=== PATIENT | female | born 1990 | race Caucasian/White ===

== ENCOUNTER 2022-06-20 22:49 | Emergency (ER) | payer OTHER, SELFPAY ==
--- NOTE | ~2022-06-20 | US_ITS ---
EXAMINATION: US PELVIS CLINICAL INFORMATION: Heavy vaginal bleeding, last menstrual period 05/30/2022, bleeding until today per patient, ordering provider's note states she began bleeding yesterday. History of 4 sections, last section 10 years ago COMPARISON: None TECHNIQUE: Ultrasound of the pelvis is performed using both transabdominal and transvaginal transducers along with Doppler. Transvaginal imaging is performed due to inadequate visualization transabdominally. FINDINGS: Uterus: Anteverted/anteflexed: 11.3 x 4.5 x 5.3 cm with a volume of 141 mL. Probable scar along the anteroinferior body. The endometrial stripe measures up to 1.0 cm at the level the fundus. The cervical canal is mildly widened with heterogeneous material with anechoic, hypoechoic and echogenic components. Color Doppler showed no associated vascular flow. Right ovary: 1.9 x 1.6 x 1.7 cm with a volume of 2.7 cm. Color Doppler showed no abnormal vascular flow. Left ovary: 2.0 x 1.3 x 1.7 cm with a volume of 2.3 mL. Color Doppler showed no abnormal vascular flow. Urinary bladder: Mildly distended without focal abnormality. US/US pelvic and transvaginal IMPRESSION: 1. postsurgical changes. Heterogeneous material within the cervical canal is nonspecific, but could represent blood products, possibly products of menstruation. Sequelae of previous cannot be excluded. If bleeding persists or worsens, further evaluation with sonohysterography is recommended.
[2022-06-21 00:35] VITALS: BP 126/75; PULSE 84; RESP 18; TEMP 36.7; O2SAT 98; BMI 38.1
[2022-06-21 01:15] LABS: Basophils Absolute Auto 0.1 X10*3/uL (0.0-0.2); Basophils Percent Auto 0.7 % (0-2); Eosinophils Absolute Auto 0.5 X10*3/uL (0.0-0.4); Eosinophils Percent Auto 3.5 % (0-4); Hematocrit 40.3 % (37.0-47.0); Hemoglobin 13.9 g/dl (12.0-16.0); Imm Gran Abs Auto 0.06 X10*3/uL (0.00-0.03); Imm Gran Pct Auto 0.4 % (0.0-0.4); Lymphocytes Absolute Auto 4.6 X10*3/uL (1.2-4.9); Lymphocytes Percent Auto 30.9 % (20-40); MANUAL DIFF FLAG NO; Mean Corpuscular HGB Conc 34.5 g/dl (31.0-35.0); Mean Corpuscular Hemoglobin 31.2 pg (27.0-33.0); Mean Corpuscular Volume 90.6 fL (80.0-98.0); Mean Platelet Volume 10.8 fL (9.4-12.3); Monocytes Absolute Auto 0.9 X10*3/uL (0.1-1.2); Monocytes Percent Auto 6.3 % (2-11); Neutrophils Absolute Auto 8.5 x10*3/uL (2.0-8.3); Neutrophils Percent Auto 58.2 % (45-73); Platelet Count 384 X10*3/uL (160-400); Red Blood Count 4.45 X10*6/uL (4.20-5.50); Red Cell Distribution Width 12.7 % (11.0-16.0); White Blood Count 14.7 X10*3/uL (4.8-10.8)
[2022-06-21 01:36] LABS: Anion Gap 11 (12-20); Blood Urea Nitrogen 10 mg/dL (9-16); Calcium 9.2 mg/dL (8.4-10.2); Carbon Dioxide 24 mmol/L (22-29); Chloride 108 mmol/L (96-108); Creatinine Clr Calc Pharmacy 106.2; Estimated Glomerular Filt Rate > 60; Glucose Random 94 mg/dL (60-115); Potassium 4.1 mmol/L (3.3-5.1); Sodium 139 mmol/L (135-145)
[2022-06-21 02:21] VITALS: BP 126/90; PULSE 78; RESP 16; TEMP 36.6; O2SAT 97
[2022-06-21 02:54] LABS: Appearance Urine HAZY; Color Urine STRAW; Glucose Urine UA NEG (NEG); Leukocyte Esterase Urine NEG (NEG); Nitrite Urine NEG (NEG); Specific Gravity - Urine 1.025 (1.005-1.025); UACC Culture Trigger NO; Urine Blood 3+ (NEG); Urine Ketones NEG (NEG); Urine Protein NEG (NEG-TRACE)
[2022-06-21 02:57] LABS: UPreg QC Valid YES; Urine Pregnancy NEGATIVE (NEGATIVE)
[2022-06-21 03:00] LABS: Bacteria Urine 2+ /LPF; Mucus Urine 1+ /LPF; Squamous Epithelial Cell Urine 1+ /LPF
[2022-06-21 03:12] LABS: HCG Quantitative < 2 mIU/mL
[2022-06-21] MEDS: 0.9 % Sodium Chloride 1,000 ML 999 ML IV (03:20)
[2022-06-21 05:42] VITALS: BP 108/63; PULSE 77; RESP 16; TEMP 36.5; O2SAT 99
[2022-06-21 06:48] VITALS: BP 118/82; PULSE 79; RESP 16; O2SAT 98
--- NOTE | 2022-06-21 06:48 | ED_ITS ---
HPI - Female Genitourinary General Chief complaint: Vaginal Bleeding Stated complaint: long period, lot of blood Time Seen by Provider: 06/21/22 06:46 Source: patient Mode of arrival: ambulatory Limitations: no limitations History of Present Illness HPI Narrative: Patient comes to the emergency room complaining of heavy vaginal bleeding for 3 and half weeks. She denies chest pain or shortness of breath, no light headedness no dizziness. Patient denies abdominal cramping. No dysuria. Before I saw the patient has, labs were drawn, hemoglobin is stable at 13.9, hematocrit 40.3%. I discussed his labs with the patient, which are normal considering the amount of bleeding that the patient has had. Then patient corrected herself, states she started bleeding heavily only since yesterday. Related Data Previous Rx's Medication Instructions Recorded levonorgestrel 0.15 mg-ethinyl 1 tab PO DAILY #84 tabs 06/21/22 estradiol 0.03 mg tablet (Altavera (28)) Allergies Allergy/AdvReac Type Severity Reaction Status Date / Time peanut [PEANUT] Allergy Unknown UNKNWON Verified 06/21/22 02:12 Review of Systems Review of Systems: Constitutional : No Weight loss, No Fever, No Chills, No Night Sweats, No Fatigue, No Malaise ENT/Mouth : No Hearing loss, No Ear Pain, No Nasal Congestion, No Sinus Pain, No Hoarseness, No sore throat, No Rhinorrhea, No Swallowing Difficulty Eyes: No Eye Pain, No Swelling, No Redness, No Foreign Body, No Discharge, No Vision Changes Cardiovascular : No Chest Pain, No SOB, No Dyspnea on Exertion, No Orthopnea, No Edema, No Palpitations Respiratory : No Cough, No Sputum, No Wheezing, No Smoke Exposure, No Dyspnea Gastrointestinal : No Nausea, No Vomiting, No Diarrhea, No Constipation, No abdominal Pain, No Hematochezia, No Melena Genitourinary : Complaining of heavy vaginal bleeding, No Dysuria, No Urinary Frequency, No Hematuria, No Urinary Incontinence, No Urgency, No Flank Pain, No Urinary Flow Changes, No Hesitancy Musculoskeletal : No joint pain, No Myalgias, No Joint Swelling Skin : No Skin Lesions, No rash Neuro : No Weakness, No Numbness, No Paresthesias, No Loss of Consciousness, No Dizziness, No Headache Psych : No Anxiety/Panic, No Depression, No SI/HI/AH/VH, No Social Issues, Heme/Lymph: No Bruising, No Bleeding,No Lymphadenopathy Endocrine : No Polyuria, No Polydipsia, No Temperature Intolerance [facility] Social History Social History Advance Directives: No Advance Directives Information Provided: Yes Physical Exam Vital Signs: Vital Signs: Last Vital Signs Temp 97.7 F 06/21/22 05:42 Pulse 79 06/21/22 06:48 Resp 16 06/21/22 06:48 BP 118/82 06/21/22 06:48 Pulse Ox 98 06/21/22 06:48 O2 Del Method 06/21/22 06:48 BMI result Body Mass Index 38.1 Const: Other: Appearance: Alert. Oriented X3. No acute distress. Well-appearing Eyes: Pupils equal, round and reactive to light. ENT: Pharynx normal. Neck: Normal inspection. Neck supple. No lymph nodes noted. No crepitus CVS: Normal heart rate and rhythm. Pulses normal. Normal S1 and S2 Respiratory: No respiratory distress. Breath sounds normal. No Wheezing. No rales Abdomen: Soft and nontender. No rigidity. No distention. : Small amount of blood clots in the vaginal vault, no active bleeding Skin: Skin warm and dry. Normal skin color. Normal skin turgor. Extremities: No lower extremity edema. No Lacerations. No Rash Neuro: Oriented X 3. No motor deficit. No sensory deficit. Moving all extremities. No slurred speech. CN 2 through 12 grossly intact Psych: calm, cooperative, normal affect Course Course Course Narrative: I discussed the ultrasound and physical findings with the patient, patient will be started on control pills. Patient will follow-up with OBGYN MDM - Female Genitourinary Lab Data Result diagrams: 06/21/22 01:10 06/21/22 01:10 Labs: Lab Results 06/21/22 06/21/22 06/21/22 Range/Units 01:10 01:10 02:48 WBC 14.7 H (4.8-10.8) X10*3/uL RBC 4.45 (4.20-5.50) X10*6/uL Hgb 13.9 (12.0-16.0) g/dl Hct 40.3 (37.0-47.0) % MCV 90.6 (80.0-98.0) fL MCH 31.2 (27.0-33.0) pg MCHC 34.5 (31.0-35.0) g/dl RDW 12.7 (11.0-16.0) % Plt Count 384 (160-400) X10*3/uL MPV 10.8 (9.4-12.3) fL Immature Gran % (Auto) 0.4 (0.0-0.4) % Neut % (Auto) 58.2 (45-73) % Lymph % (Auto) 30.9 (20-40) % Harris % (Auto) 6.3 (2-11) % Eos % (Auto) 3.5 (0-4) % Baso % (Auto) 0.7 (0-2) % Lymph # (Auto) 4.6 (1.2-4.9) X10*3/uL Harris # (Auto) 0.9 (0.1-1.2) X10*3/uL Eos # (Auto) 0.5 H (0.0-0.4) X10*3/uL Baso # (Auto) 0.1 (0.0-0.2) X10*3/uL Abs Immat Gran (auto) 0.06 H (0.00-0.03) X10*3/uL Absolute Neuts (auto) 8.5 H (2.0-8.3) x10*3/uL Absolute Nucleated RBC 0.000 (0.0-0.012) X10*3/uL Nucleated RBC % (auto) 0.0 (0.0-0.2) /100WBC Sodium 139 (135-145) mmol/L Potassium 4.1 (3.3-5.1) mmol/L Chloride 108 (96-108) mmol/L Carbon Dioxide 24 (22-29) mmol/L Anion Gap 11 L (12-20) BUN 10 (9-16) mg/dL Creatinine 0.76 (0.5-1.4) mg/dL Estim Creat Clear Calc 106.2 Estimated GFR > 60 Random Glucose 94 (60-115) mg/dL Calcium 9.2 (8.4-10.2) mg/dL Beta HCG, Quant < 2 mIU/mL Urine Color Urine Appearance Urine pH (5.0-8.0) Ur Specific [place] (1.005-1.025) Urine Protein (NEG-TRACE) MG/DL Urine Glucose (UA) (NEG) MG/DL Urine Ketones (NEG) MG/DL Urine Blood (NEG) Urine Nitrite (NEG) Ur Leukocyte Esterase (NEG) Urine RBC (0) /HPF Urine WBC (0-4) /HPF Ur Squamous Epith Cells /LPF Urine Bacteria /LPF Urine Mucus /LPF Urine Test NEGATIVE (NEGATIVE) 06/21/22 Range/Units 02:48 WBC (4.8-10.8) X10*3/uL RBC (4.20-5.50) X10*6/uL Hgb (12.0-16.0) g/dl Hct (37.0-47.0) % MCV (80.0-98.0) fL MCH (27.0-33.0) pg MCHC (31.0-35.0) g/dl RDW (11.0-16.0) % Plt Count (160-400) X10*3/uL MPV (9.4-12.3) fL Immature Gran % (Auto) (0.0-0.4) % Neut % (Auto) (45-73) % Lymph % (Auto) (20-40) % Harris % (Auto) (2-11) % Eos % (Auto) (0-4) % Baso % (Auto) (0-2) % Lymph # (Auto) (1.2-4.9) X10*3/uL Harris # (Auto) (0.1-1.2) X10*3/uL Eos # (Auto) (0.0-0.4) X10*3/uL Baso # (Auto) (0.0-0.2) X10*3/uL Abs Immat Gran (auto) (0.00-0.03) X10*3/uL Absolute Neuts (auto) (2.0-8.3) x10*3/uL Absolute Nucleated RBC (0.0-0.012) X10*3/uL Nucleated RBC % (auto) (0.0-0.2) /100WBC Sodium (135-145) mmol/L Potassium (3.3-5.1) mmol/L Chloride (96-108) mmol/L Carbon Dioxide (22-29) mmol/L Anion Gap (12-20) BUN (9-16) mg/dL Creatinine (0.5-1.4) mg/dL Estim Creat Clear Calc Estimated GFR Random Glucose (60-115) mg/dL Calcium (8.4-10.2) mg/dL Beta HCG, Quant mIU/mL Urine Color STRAW Urine Appearance HAZY Urine pH 6.0 (5.0-8.0) Ur Specific [place] 1.025 (1.005-1.025) Urine Protein NEG (NEG-TRACE) MG/DL Urine Glucose (UA) NEG (NEG) MG/DL Urine Ketones NEG (NEG) MG/DL Urine Blood 3+ H (NEG) Urine Nitrite NEG (NEG) Ur Leukocyte Esterase NEG (NEG) Urine RBC 10-14 H (0) /HPF Urine WBC 1-4 (0-4) /HPF Ur Squamous Epith Cells 1+ /LPF Urine Bacteria 2+ /LPF Urine Mucus 1+ /LPF Urine Test (NEGATIVE) Imaging Data US - abdomen: Radiologist's impression: FINDINGS: Uterus: Anteverted/anteflexed: 11.3 x 4.5 x 5.3 cm with a volume of 141 mL. Probable scar along the anteroinferior body. The endometrial stripe measures up to 1.0 cm at the level the fundus. The cervical canal is mildly widened with heterogeneous material with anechoic, hypoechoic and echogenic components. Color Doppler showed no associated vascular flow. Right ovary: 1.9 x 1.6 x 1.7 cm with a volume of 2.7 cm. Color Doppler showed no abnormal vascular flow. Left ovary: 2.0 x 1.3 x 1.7 cm with a volume of 2.3 mL. Color Doppler showed no abnormal vascular flow. Urinary bladder: Mildly distended without focal abnormality. US/US pelvic and transvaginal IMPRESSION: 1. postsurgical changes. Heterogeneous material within the cervical canal is nonspecific, but could represent blood products, possibly products of menstruation. Sequelae of previous cannot be excluded. If bleeding persists or worsens, further evaluation with sonohysterography is recommended. Discharge Plan Discharge Clinical Impression: Vaginal bleeding Patient Disposition: Home, Self-Care Instructions: Dysfunctional Uterine Bleeding (ED) Additional Instructions: Please follow-up with your primary care physician tomorrow. If you have any worsening or new symptoms, please return to the emergency room or call 911 Prescriptions: New levonorgestrel-ethinyl estrad [Altavera (28)] 0.15-0.03 mg tablet 1 tab PO DAILY Qty: 84 0RF Rx Instructions: For the 1st 4 days, take 4 tablets, next 3 days, take 3 tablets, next 2 days take 2 tablets, then 1 tablet oral daily Referrals: Remy Lakhani MD [Physician] - 2 days
--- NOTE | 2022-06-21 08:50 | PC.NURSE ---
Pt sleeping at this time, awaiting US results, call shane within reach. Will continue to monitor.
== END 2022-06-21 10:32 | disposition home or self-care (01) ==
PROVIDERS: Emergency Provider Emergency Medicine
DX: N93.9 Abnormal uterine and vaginal bleeding, unspecified (principal)
CPT/HCPCS: 36415; 76830; 76856; 80048; 81001; 81025; 84702; 85025; 86850; 86900; 86901; 96360; 99284

== ENCOUNTER 2022-11-21 04:15 | Emergency (ER) | payer MEDICAID, SELFPAY ==
[2022-11-21 04:17] VITALS: BP 140/78; PULSE 92; O2SAT 98
[2022-11-21 04:35] VITALS: BP 106/70; BP 114/68; PULSE 85; PULSE 86; RESP 18; TEMP 36.5; O2SAT 98; BMI 33.2
--- NOTE | 2022-11-21 05:53 | ECG_ITS ---
Test Reason : DIZZINESS Blood Pressure : / mmHG Vent. Rate : 073 BPM Atrial Rate : 073 BPM P-R Int : 176 ms QRS Dur : 076 ms QT Int : 384 ms P-R-T Axes : 042 026 009 degrees QTc Int : 423 ms Normal sinus rhythm Normal ECG No previous ECGs available Referred By: Radha Sanchez Electronically Signed By:FATIMAH GUZMAN MD
--- NOTE | 2022-11-21 05:54 | ED_ITS ---
HPI - Syncope General Chief Complaint: Dizziness Stated Complaint: syncope Time Seen by Provider: 11/21/22 05:49 Source: patient and EMS Mode of arrival: EMS Limitations: no limitations History of Present Illness HPI narrative: Patient comes to the emergency room complaining of a syncopal episode that occurred at work. 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 Patient reports she started feeling lightheaded, then suddenly collapsed to the floor. Patient states that she was told that she was unconscious for a couple minutes. Patient denies any chest pain or shortness of breath or palpitations. At this time, patient states that she has no dizziness or symptoms. Related Data Previous Rx's Medication Instructions Recorded levonorgestrel 0.15 mg-ethinyl 1 tab PO DAILY #84 tabs 06/21/22 estradiol 0.03 mg tablet (Altavera (28)) Allergies Allergy/AdvReac Type Severity Reaction Status Date / Time peanut [PEANUT] Allergy Unknown UNKNWON Verified 06/21/22 02:12 Review of Systems Review of Systems: Constitutional : No Weight loss, No Fever, No Chills, No Night Sweats, No Fatigue, No Malaise ENT/Mouth : No Hearing loss, No Ear Pain, No Nasal Congestion, No Sinus Pain, No Hoarseness, No sore throat, No Rhinorrhea, No Swallowing Difficulty Eyes: No Eye Pain, No Swelling, No Redness, No Foreign Body, No Discharge, No Vision Changes Cardiovascular : No Chest Pain, No SOB, No Dyspnea on Exertion, No Orthopnea, No Edema, No Palpitations Respiratory : No Cough, No Sputum, No Wheezing, No Smoke Exposure, No Dyspnea Gastrointestinal : No Nausea, No Vomiting, No Diarrhea, No Constipation, No abdominal Pain, No Hematochezia, No Melena Genitourinary : no irregular bleeding, No Dysuria, No Urinary Frequency, No Hematuria, No Urinary Incontinence, No Urgency, No Flank Pain, No Urinary Flow Changes, No Hesitancy Musculoskeletal : No joint pain, No Myalgias, No Joint Swelling Skin : No Skin Lesions, No rash Neuro : No Weakness, No Numbness, No Paresthesias, complaining of a syncopal episode, No Dizziness, No Headache Psych : No Anxiety/Panic, No Depression, No SI/HI/AH/VH, No Social Issues, Heme/Lymph: No Bruising, No Bleeding,No Lymphadenopathy Endocrine : No Polyuria, No Polydipsia, No Temperature Intolerance [facility] Social History Social History Advance Directives: No Advance Directives Information Provided: Yes Physical Exam Vital Signs: Vital Signs: Last Vital Signs Temp 97.7 F 11/21/22 04:35 Pulse 80 11/21/22 06:06 Resp 18 11/21/22 04:35 BP 120/78 11/21/22 06:06 Pulse Ox 98 11/21/22 04:35 O2 Del Method 11/21/22 04:35 BMI result Body Mass Index 33.2 Const: Other: Appearance: Alert. Oriented X3. No acute distress. Eyes: Pupils equal, round and reactive to light. ENT: Pharynx normal. Neck: Normal inspection. Neck supple. No lymph nodes noted. No crepitus CVS: Normal heart rate and rhythm. Pulses normal. Normal S1 and S2 Respiratory: No respiratory distress. Breath sounds normal. No Wheezing. No rales Abdomen: Soft and nontender. No rigidity. No distention. Skin: Skin warm and dry. Normal skin color. Normal skin turgor. Extremities: No lower extremity edema. No Lacerations. No Rash Neuro: Oriented X 3. No motor deficit. No sensory deficit. Moving all extremities. No slurred speech. CN 2 through 12 grossly intact Psych: calm, cooperative, normal affect Course Course Course Narrative: All of patient's labs and imaging pending, orthostatic vitals are negative Of patient's labs are normal, EKG normal, I discussed with the patient that if she continues having syncopal episodes, she will be be evaluated by Cardiology, possibly needs a Holter monitor evaluation. Medical Decision Making Lab Data MDM Lab Attestation statement: I reviewed the patient's lab results. Result Diagrams: 11/21/22 06:20 11/21/22 06:20 Labs: Lab Results 11/21/22 11/21/22 11/21/22 Range/Units 06:20 06:20 06:20 WBC 12.6 H (4.8-10.8) X10*3/uL RBC 4.30 (4.20-5.50) X10*6/uL Hgb 13.3 (12.0-16.0) g/dl Hct 38.9 (37.0-47.0) % MCV 90.5 (80.0-98.0) fL MCH 30.9 (27.0-33.0) pg MCHC 34.2 (31.0-35.0) g/dl RDW 12.6 (11.0-16.0) % Plt Count 388 (160-400) X10*3/uL MPV 11.0 (9.4-12.3) fL Immature Gran % (Auto) 0.3 (0.0-0.4) % Neut % (Auto) 63.3 (45-73) % Lymph % (Auto) 26.0 (20-40) % [place] % (Auto) 7.3 (2-11) % Eos % (Auto) 2.3 (0-4) % Baso % (Auto) 0.8 (0-2) % Lymph # (Auto) 3.3 (1.2-4.9) X10*3/uL [place] # (Auto) 0.9 (0.1-1.2) X10*3/uL Eos # (Auto) 0.3 (0.0-0.4) X10*3/uL Baso # (Auto) 0.1 (0.0-0.2) X10*3/uL Abs Immat Gran (auto) 0.04 H (0.00-0.03) X10*3/uL Absolute Neuts (auto) 8.0 (2.0-8.3) x10*3/uL Absolute Nucleated RBC 0.000 (0.0-0.012) X10*3/uL Nucleated RBC % (auto) 0.0 (0.0-0.2) /100WBC D-Dimer High Sensitivty NG/ML Sodium 137 (135-145) mmol/L Potassium 4.2 (3.3-5.1) mmol/L Chloride 106 (96-108) mmol/L Carbon Dioxide 23 (22-29) mmol/L Anion Gap 12 (12-20) BUN 11 (9-16) mg/dL Creatinine 0.67 (0.5-1.4) mg/dL Estim Creat Clear Calc 110.6 Estimated GFR > 60 Random Glucose 97 (60-115) mg/dL Calcium 9.3 (8.4-10.2) mg/dL Total Bilirubin 0.3 (0.0-1.0) mg/dL Direct Bilirubin < 0.2 (0.0-0.5) mg/dL AST 15 (5-31) U/L ALT 19 (0-31) U/L Alkaline Phosphatase 101 (39-117) U/L Troponin I High Sens < 3.5 (<3.5-17.0) ng/L Total Protein 6.7 (6.5-8.0) g/dL Albumin 3.9 (3.5-5.0) g/dL Beta HCG, Quant < 2 mIU/mL Urine Color Urine Appearance Urine pH (5.0-9.0) Ur Specific [place] (1.005-1.025) Urine Protein (Neg-Trace) mg/dL Urine Glucose (UA) (Negative) mg/dL Urine Ketones (Negative) mg/dL Urine Blood (Negative) Urine Nitrite (Negative) Ur Leukocyte Esterase (Negative) Urine RBC (0-2) /HPF Urine WBC (0-5) /HPF Ur Squamous Epith Cells (0-2) /HPF Urine Bacteria (None Seen) Hyaline Casts (0-2) /LPF Urine Opiates Screen (Not Detect) Urine Fentanyl Screen (Not Detect) Ur Barbiturates Screen (Not Detect) Ur Phencyclidine Scrn (Not Detect) Ur Amphetamines Screen (Not Detect) U Benzodiazepines Scrn (Not Detect) Urine Cocaine Screen (Not Detect) U Marijuana (THC) Screen (Not Detect) COVID-19 (JIAN) (Negative) COVID-19 Clin Com 11/21/22 11/21/22 11/21/22 Range/Units 06:20 06:20 06:20 WBC (4.8-10.8) X10*3/uL RBC (4.20-5.50) X10*6/uL Hgb (12.0-16.0) g/dl Hct (37.0-47.0) % MCV (80.0-98.0) fL MCH (27.0-33.0) pg MCHC (31.0-35.0) g/dl RDW (11.0-16.0) % Plt Count (160-400) X10*3/uL MPV (9.4-12.3) fL Immature Gran % (Auto) (0.0-0.4) % Neut % (Auto) (45-73) % Lymph % (Auto) (20-40) % [place] % (Auto) (2-11) % Eos % (Auto) (0-4) % Baso % (Auto) (0-2) % Lymph # (Auto) (1.2-4.9) X10*3/uL [place] # (Auto) (0.1-1.2) X10*3/uL Eos # (Auto) (0.0-0.4) X10*3/uL Baso # (Auto) (0.0-0.2) X10*3/uL Abs Immat Gran (auto) (0.00-0.03) X10*3/uL Absolute Neuts (auto) (2.0-8.3) x10*3/uL Absolute Nucleated RBC (0.0-0.012) X10*3/uL Nucleated RBC % (auto) (0.0-0.2) /100WBC D-Dimer High Sensitivty < 150 NG/ML Sodium (135-145) mmol/L Potassium (3.3-5.1) mmol/L Chloride (96-108) mmol/L Carbon Dioxide (22-29) mmol/L Anion Gap (12-20) BUN (9-16) mg/dL Creatinine (0.5-1.4) mg/dL Estim Creat Clear Calc Estimated GFR Random Glucose (60-115) mg/dL Calcium (8.4-10.2) mg/dL Total Bilirubin (0.0-1.0) mg/dL Direct Bilirubin (0.0-0.5) mg/dL AST (5-31) U/L ALT (0-31) U/L Alkaline Phosphatase (39-117) U/L Troponin I High Sens (<3.5-17.0) ng/L Total Protein (6.5-8.0) g/dL Albumin (3.5-5.0) g/dL Beta HCG, Quant mIU/mL Urine Color Yellow Urine Appearance Clear Urine pH 6.0 (5.0-9.0) Ur Specific [place] 1.015 (1.005-1.025) Urine Protein Negative (Neg-Trace) mg/dL Urine Glucose (UA) Negative (Negative) mg/dL Urine Ketones Negative (Negative) mg/dL Urine Blood Negative (Negative) Urine Nitrite Negative (Negative) Ur Leukocyte Esterase Trace H (Negative) Urine RBC 0-2 (0-2) /HPF Urine WBC 0-5 (0-5) /HPF Ur Squamous Epith Cells 3-5 (0-2) /HPF Urine Bacteria Trace (None Seen) Hyaline Casts 0-2 (0-2) /LPF Urine Opiates Screen (Not Detect) Urine Fentanyl Screen (Not Detect) Ur Barbiturates Screen (Not Detect) Ur Phencyclidine Scrn (Not Detect) Ur Amphetamines Screen (Not Detect) U Benzodiazepines Scrn (Not Detect) Urine Cocaine Screen (Not Detect) U Marijuana (THC) Screen (Not Detect) COVID-19 (JIAN) Negative (Negative) COVID-19 Clin Com See Note 11/21/22 Range/Units 06:20 WBC (4.8-10.8) X10*3/uL RBC (4.20-5.50) X10*6/uL Hgb (12.0-16.0) g/dl Hct (37.0-47.0) % MCV (80.0-98.0) fL MCH (27.0-33.0) pg MCHC (31.0-35.0) g/dl RDW (11.0-16.0) % Plt Count (160-400) X10*3/uL MPV (9.4-12.3) fL Immature Gran % (Auto) (0.0-0.4) % Neut % (Auto) (45-73) % Lymph % (Auto) (20-40) % [place] % (Auto) (2-11) % Eos % (Auto) (0-4) % Baso % (Auto) (0-2) % Lymph # (Auto) (1.2-4.9) X10*3/uL [place] # (Auto) (0.1-1.2) X10*3/uL Eos # (Auto) (0.0-0.4) X10*3/uL Baso # (Auto) (0.0-0.2) X10*3/uL Abs Immat Gran (auto) (0.00-0.03) X10*3/uL Absolute Neuts (auto) (2.0-8.3) x10*3/uL Absolute Nucleated RBC (0.0-0.012) X10*3/uL Nucleated RBC % (auto) (0.0-0.2) /100WBC D-Dimer High Sensitivty NG/ML Sodium (135-145) mmol/L Potassium (3.3-5.1) mmol/L Chloride (96-108) mmol/L Carbon Dioxide (22-29) mmol/L Anion Gap (12-20) BUN (9-16) mg/dL Creatinine (0.5-1.4) mg/dL Estim Creat Clear Calc Estimated GFR Random Glucose (60-115) mg/dL Calcium (8.4-10.2) mg/dL Total Bilirubin (0.0-1.0) mg/dL Direct Bilirubin (0.0-0.5) mg/dL AST (5-31) U/L ALT (0-31) U/L Alkaline Phosphatase (39-117) U/L Troponin I High Sens (<3.5-17.0) ng/L Total Protein (6.5-8.0) g/dL Albumin (3.5-5.0) g/dL Beta HCG, Quant mIU/mL Urine Color Urine Appearance Urine pH (5.0-9.0) Ur Specific [place] (1.005-1.025) Urine Protein (Neg-Trace) mg/dL Urine Glucose (UA) (Negative) mg/dL Urine Ketones (Negative) mg/dL Urine Blood (Negative) Urine Nitrite (Negative) Ur Leukocyte Esterase (Negative) Urine RBC (0-2) /HPF Urine WBC (0-5) /HPF Ur Squamous Epith Cells (0-2) /HPF Urine Bacteria (None Seen) Hyaline Casts (0-2) /LPF Urine Opiates Screen Not Detected (Not Detect) Urine Fentanyl Screen Not Detected (Not Detect) Ur Barbiturates Screen Not Detected (Not Detect) Ur Phencyclidine Scrn Not Detected (Not Detect) Ur Amphetamines Screen Not Detected (Not Detect) U Benzodiazepines Scrn Not Detected (Not Detect) Urine Cocaine Screen Not Detected (Not Detect) U Marijuana (THC) Screen Not Detected (Not Detect) COVID-19 (JIAN) (Negative) COVID-19 Clin Com Independent Interpretation I performed an independent interpretation of an: EKG (My interpretation: Sinus rhythm, heart rate 73, no ST segment depression or elevation, no T-wave inversion.) Discharge Plan Discharge Clinical Impression: Syncope Patient Disposition: Home, Self-Care Instructions: Syncope (ED) Additional Instructions: Please follow-up with your primary care physician tomorrow. If you have any worsening or new symptoms, please return to the emergency room or call 911 Prescriptions: No Action levonorgestrel-ethinyl estrad [Altavera (28)] 0.15-0.03 mg tablet 1 tab PO DAILY Qty: 84 0RF Rx Instructions: For the 1st 4 days, take 4 tablets, next 3 days, take 3 tablets, next 2 days take 2 tablets, then 1 tablet oral daily
[2022-11-21 06:04] VITALS: BP 114/67; PULSE 78
[2022-11-21 06:05] VITALS: BP 107/75; PULSE 76
[2022-11-21 06:06] VITALS: BP 120/78; PULSE 80
[2022-11-21 06:28] LABS: MANUAL DIFF FLAG NO
[2022-11-21 06:30] LABS: Appearance Urine Clear; Color Urine Yellow; Glucose Urine UA Negative (Negative); Leukocyte Esterase Urine Trace (Negative); Nitrite Urine Negative (Negative); Specific Gravity - Urine 1.015 (1.005-1.025); UMIC TRIGGER UACC YES; Urine Blood Negative (Negative); Urine Ketones Negative (Negative); Urine Protein Negative (Neg-Trace)
[2022-11-21 06:34] LABS: Basophils Absolute Auto 0.1 X10*3/uL (0.0-0.2); Basophils Percent Auto 0.8 % (0-2); Eosinophils Absolute Auto 0.3 X10*3/uL (0.0-0.4); Eosinophils Percent Auto 2.3 % (0-4); Hematocrit 38.9 % (37.0-47.0); Hemoglobin 13.3 g/dl (12.0-16.0); Imm Gran Abs Auto 0.04 X10*3/uL (0.00-0.03); Imm Gran Pct Auto 0.3 % (0.0-0.4); Lymphocytes Absolute Auto 3.3 X10*3/uL (1.2-4.9); Mean Corpuscular HGB Conc 34.2 g/dl (31.0-35.0); Mean Corpuscular Hemoglobin 30.9 pg (27.0-33.0); Mean Corpuscular Volume 90.5 fL (80.0-98.0); Monocytes Absolute Auto 0.9 X10*3/uL (0.1-1.2); Monocytes Percent Auto 7.3 % (2-11); Neutrophils Percent Auto 63.3 % (45-73); Platelet Count 388 X10*3/uL (160-400); Red Cell Distribution Width 12.6 % (11.0-16.0); White Blood Count 12.6 X10*3/uL (4.8-10.8)
[2022-11-21 06:36] LABS: Bacteria Urine Trace (None Seen); Hyaline Casts Urine 0-2 /LPF (0-2); RBC Urine 0-2 /HPF (0-2); WBC Urine 0-5 /HPF (0-5)
[2022-11-21 06:38] LABS: Amphetamine Screen Urine Not Detected (Not Detect); Barbiturates, Urine Not Detected (Not Detect); Benzodiazepines Screen Urine Not Detected (Not Detect); Cannabinoid Screen Urine Not Detected (Not Detect); Cocaine Screen Urine Not Detected (Not Detect); Fentanyl, urine Not Detected (Not Detect); Opiate Screen Urine Not Detected (Not Detect); Phencyclidine Screen Urine Not Detected (Not Detect)
[2022-11-21 06:41] LABS: COVID-19 Test Negative (Negative); IDNOW Serial# 9DB6401D
[2022-11-21 06:51] LABS: D Dimer High Sensitivity < 150 NG/ML
[2022-11-21 06:57] LABS: Troponin-I High Sensitivity < 3.5 ng/L (<3.5-17.0)
[2022-11-21 07:03] LABS: Alanine Aminotransferase 19 U/L (0-31); Albumin Level 3.9 g/dL (3.5-5.0); Alkaline Phosphatase 101 U/L (39-117); Anion Gap 12 (12-20); Aspartate Amino Transferase 15 U/L (5-31); Bilirubin Direct < 0.2 mg/dL (0.0-0.5); Bilirubin Total 0.3 mg/dL (0.0-1.0); Blood Urea Nitrogen 11 mg/dL (9-16); Calcium 9.3 mg/dL (8.4-10.2); Carbon Dioxide 23 mmol/L (22-29); Chloride 106 mmol/L (96-108); Creatinine Clr Calc Pharmacy 110.6; Estimated Glomerular Filt Rate > 60; Glucose Random 97 mg/dL (60-115); HCG Quantitative < 2 mIU/mL; Potassium 4.2 mmol/L (3.3-5.1); Sodium 137 mmol/L (135-145); Total Protein 6.7 g/dL (6.5-8.0)
== END 2022-11-21 07:57 | disposition home or self-care (01) ==
PROVIDERS: Emergency Provider Emergency Medicine
DX: R55 Syncope and collapse (principal); R42 Dizziness and giddiness; Z20.822 Contact with and (suspected) exposure to COVID-19; Z79.899 Other long term (current) drug therapy
CPT/HCPCS: 36415; 80048; 80076; 80307; 81001; 84484; 84702; 85025; 85379; 87635; 93005; 99283; 99284

== ENCOUNTER 2023-01-22 23:57 | Emergency (ER) | payer MEDICAID, SELFPAY ==
[2023-01-23 00:01] VITALS: BP 117/72; PULSE 95; RESP 16; TEMP 36.7; O2SAT 98; BMI 35.5
[2023-01-23 00:18] LABS: Basophils Absolute Auto 0.1 X10*3/uL (0.0-0.2); Basophils Percent Auto 0.7 % (0-2); Eosinophils Absolute Auto 0.5 X10*3/uL (0.0-0.4); Eosinophils Percent Auto 3.2 % (0-4); Hematocrit 40.4 % (37.0-47.0); Imm Gran Abs Auto 0.05 X10*3/uL (0.00-0.03); Imm Gran Pct Auto 0.3 % (0.0-0.4); Lymphocytes Absolute Auto 4.4 X10*3/uL (1.2-4.9); Lymphocytes Percent Auto 30.1 % (20-40); MANUAL DIFF FLAG NO; Mean Corpuscular HGB Conc 34.7 g/dl (31.0-35.0); Mean Corpuscular Hemoglobin 31.1 pg (27.0-33.0); Mean Corpuscular Volume 89.8 fL (80.0-98.0); Mean Platelet Volume 10.7 fL (9.4-12.3); Neutrophils Absolute Auto 8.5 x10*3/uL (2.0-8.3); Neutrophils Percent Auto 58.7 % (45-73); Platelet Count 352 X10*3/uL (160-400); Red Cell Distribution Width 12.4 % (11.0-16.0); White Blood Count 14.5 X10*3/uL (4.8-10.8)
[2023-01-23 00:29] LABS: Anion Gap 10 (12-20); Blood Urea Nitrogen 18 mg/dL (9-16); Calcium 9.2 mg/dL (8.4-10.2); Carbon Dioxide 23 mmol/L (22-29); Chloride 108 mmol/L (96-108); Creatinine Clr Calc Pharmacy 111.4; Estimated Glomerular Filt Rate > 60; Glucose Random 93 mg/dL (60-115); Sodium 137 mmol/L (135-145)
[2023-01-23 01:27] VITALS: BP 116/73; PULSE 88; RESP 18; TEMP 36.9; O2SAT 98
[2023-01-23 01:39] LABS: Appearance Urine Clear; Color Urine Yellow; Glucose Urine UA Negative (Negative); Leukocyte Esterase Urine Negative (Negative); Nitrite Urine Negative (Negative); Specific Gravity - Urine 1.025 (1.005-1.025); Urine Blood Negative (Negative); Urine Ketones Negative (Negative); Urine Protein Negative (Neg-Trace)
[2023-01-23 01:48] LABS: HCG Quantitative < 2 mIU/mL
--- NOTE | 2023-01-23 01:53 | ED.ABDPAIN ---
HPI - Abdominal Pain General Chief Complaint: Abdominal Pain Stated Complaint: Pelvic pain Time Seen by Provider: 01/23/23 01:46 Source: patient Mode of arrival: ambulatory History of Present Illness HPI narrative: 32-year-old female who reports that she has pain at each corner of her section scar. She denies any associated erythema/induration/fevers/chills or urinary symptoms and denies any nausea, vomiting, or diarrhea. Related Data Previous Rx's Medication Instructions Recorded levonorgestrel 0.15 mg-ethinyl 1 tab PO DAILY #84 tabs 06/21/22 estradiol 0.03 mg tablet (Altavera (28)) Allergies Allergy/AdvReac Type Severity Reaction Status Date / Time peanut [PEANUT] Allergy Unknown UNKNWON Verified 06/21/22 02:12 Review of Systems Review of Systems Pertinent positives and negatives as stated in HPI PMFSH Past Medical History Source: nursing notes reviewed Social History Social History Advance Directives: No Physical Exam ED Vital Signs: Vital Signs - 24 hr 01/23/23 00:01 01/23/23 01:27 Temperature 98.0 F 98.4 F Pulse Rate 95 88 Respiratory Rate 16 18 Blood Pressure 117/72 116/73 Pulse Oximetry 98 98 Oxygen Delivery Method Room Air Room Air BMI result Body Mass Index 35.5 VITAL SIGNS: Reviewed. GENERAL: Well developed, well nourished, in no acute distress. HEAD: Normocephalic/atraumatic EYES: PERRLA, EOMI EARS: Ext canals without abnormality OROPHARYNX: no oral lesions noted, posterior pharynx clear LUNGS: Normal breath sounds. No adventitious sounds or accessory muscle use. SpO2<98> CARDIOVASCULAR: Regular rate and rhythm without noted murmurs ABDOMEN: Soft, non-tender, non-distended with bowel sounds, there is no erythema or induration along the scar line. NEUROLOGIC: Alert and oriented x 4. Strength and sensation to light touch were grossly intact x 4. Medical Decision Making Medical Decision Making [facility] Narrative: 32-year-old female with recurrent pain at the scar site, type of pain and prior workup is inconsistent with incisional hernia, there are no symptoms of obstruction or infection. I reviewed all investigations in my interpretation is patient has scar related discomfort, I did recommend to her the use of lidocaine patch and a the possibility of outpatient referral for a scar revision. Differential Diagnosis Please see the discussion above Lab Data Please see the discussion above 01/23/23 00:10 01/23/23 00:10 Labs: Lab Results 01/23/23 01/23/23 01/23/23 Range/Units 00:10 00:10 01:29 WBC 14.5 H (4.8-10.8) X10*3/uL RBC 4.50 (4.20-5.50) X10*6/uL Hgb 14.0 (12.0-16.0) g/dl Hct 40.4 (37.0-47.0) % MCV 89.8 (80.0-98.0) fL MCH 31.1 (27.0-33.0) pg MCHC 34.7 (31.0-35.0) g/dl RDW 12.4 (11.0-16.0) % Plt Count 352 (160-400) X10*3/uL MPV 10.7 (9.4-12.3) fL Immature Gran % (Auto) 0.3 (0.0-0.4) % Neut % (Auto) 58.7 (45-73) % Lymph % (Auto) 30.1 (20-40) % [place] % (Auto) 7.0 (2-11) % Eos % (Auto) 3.2 (0-4) % Baso % (Auto) 0.7 (0-2) % Lymph # (Auto) 4.4 (1.2-4.9) X10*3/uL [place] # (Auto) 1.0 (0.1-1.2) X10*3/uL Eos # (Auto) 0.5 H (0.0-0.4) X10*3/uL Baso # (Auto) 0.1 (0.0-0.2) X10*3/uL Abs Immat Gran (auto) 0.05 H (0.00-0.03) X10*3/uL Absolute Neuts (auto) 8.5 H (2.0-8.3) x10*3/uL Absolute Nucleated RBC 0.000 (0.0-0.012) X10*3/uL Nucleated RBC % (auto) 0.0 (0.0-0.2) /100WBC Sodium 137 (135-145) mmol/L Potassium 4.0 (3.3-5.1) mmol/L Chloride 108 (96-108) mmol/L Carbon Dioxide 23 (22-29) mmol/L Anion Gap 10 L (12-20) BUN 18 H (9-16) mg/dL Creatinine 0.69 (0.5-1.4) mg/dL Estim Creat Clear Calc 111.4 Estimated GFR > 60 Random Glucose 93 (60-115) mg/dL Calcium 9.2 (8.4-10.2) mg/dL Beta HCG, Quant < 2 mIU/mL Urine Color Yellow Urine Appearance Clear Urine pH 6.0 (5.0-9.0) Ur Specific Kegley 1.025 (1.005-1.025) Urine Protein Negative (Neg-Trace) mg/dL Urine Glucose (UA) Negative (Negative) mg/dL Urine Ketones Negative (Negative) mg/dL Urine Blood Negative (Negative) Urine Nitrite Negative (Negative) Ur Leukocyte Esterase Negative (Negative) External Record Review External record reviewed: Outpatient record, Prior outpatient labs and Prior outpatient radiology Critical Care Time Critical Care Time Critical Care Time: Yes Total Critical Care Time: 30 Attestation: I personally attest to this time spent taking care of the patient. Discharge Plan Discharge Clinical Impression: Painful scar Patient Disposition: Home, Self-Care Instructions: Scar Revision (DC) Additional Instructions: I gave you information on scar revision, so you are familiar with the technique. Follow-up with your primary care provider in the next 1-2 days. Recommend that you use a lidocaine patch, these are available [id number], cut it in half in apply to each corner of your scar. Return to the ER for worsening symptoms. Prescriptions: No Action levonorgestrel-ethinyl estrad [Altavera (28)] 0.15-0.03 mg tablet 1 tab PO DAILY Qty: 84 0RF Rx Instructions: For the 1st 4 days, take 4 tablets, next 3 days, take 3 tablets, next 2 days take 2 tablets, then 1 tablet oral daily Referrals: Blake French FNP [Primary Care Provider] - Print Language: Citizen [place]
[2023-01-23] MEDS: Lidocaine 4 % Patch ADH..PATCH 1 PATCH TRANSDERMA (02:32)
== END 2023-01-23 02:45 | disposition home or self-care (01) ==
PROVIDERS: Emergency Provider Student in an Organized Health Care Education/Training Program; PCP Nurse Practitioner
DX: R10.2 Pelvic and perineal pain (principal); L90.5 Scar conditions and fibrosis of skin; Z79.899 Other long term (current) drug therapy
CPT/HCPCS: 36415; 80048; 81003; 84702; 85025; 99283

== ENCOUNTER 2023-02-28 08:21 | Emergency (ER) | payer MEDICAID, SELFPAY ==
--- NOTE | ~2023-02-28 | XR_ITS ---
EXAMINATION: XR CHEST CLINICAL INFORMATION: Cough, chest pain and shortness of breath COMPARISON: None available. TECHNIQUE: 2 views of the chest were obtained. FINDINGS: There is peribronchial thickening present. The heart and pulmonary vessels appear normal. No focal consolidations, effusions or pneumothorax is seen. XR/XR chest 2V IMPRESSION: Peribronchial thickening. No focal consolidation.
[2023-02-28 08:26] VITALS: BP 130/73; PULSE 79; RESP 20; TEMP 36.9; O2SAT 97; BMI 35.9
--- NOTE | 2023-02-28 09:16 | ED.URI ---
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 Patient states she has been sick since yesterday. She has had a very persistent, nonproductive cough. She is also complaining of chest pain. She points to her sternum when asked to localize the pain. The pain is a squeezing sensation which is worse with coughing with breathing. She states she feels short of breath at rest and has shortness of breath with exertion. She denied fever. She complained of chills, rhinorrhea, nausea and vomiting. She denied myalgias or arthralgias. Related Data Previous Rx's Medication Instructions Recorded levonorgestrel 0.15 mg-ethinyl 1 tab PO DAILY #84 tabs 06/21/22 estradiol 0.03 mg tablet (Altavera (28)) azithromycin 250 mg tablet See Rx Instructions PO .COMPLEX #6 02/28/23 (Zithromax Z-Sam) tabs benzonatate 200 mg capsule 200 mg PO TID PRN cough #15 caps 02/28/23 Allergies Allergy/AdvReac Type Severity Reaction Status Date / Time peanut [PEANUT] Allergy Unknown UNKNWON Verified 02/28/23 08:28 Review of Systems Review of Systems: Yes all other systems are reviewed and are negative [facility] Past Medical History [facility] Narrative: Past medical history: Hypoglycemia. Social history: She smokes 4-5 cigarettes per day. She occasionally drinks alcohol. She denies drug use. Social History Social History Advance Directives: No Physical Exam Vital Signs: Vital Signs: Last Vital Signs Temp 98.4 F 02/28/23 08:26 Pulse 90 02/28/23 09:33 Resp 19 02/28/23 09:33 BP 130/73 02/28/23 08:26 Pulse Ox 99 02/28/23 09:33 O2 Del Method Room Air 02/28/23 08:26 BMI result Body Mass Index 35.9 Const: Other: Awake, alert, female patient, very persistent non productive sounding cough during the interview, answers all questions appropriately. HEENT: Head: Yes normal to inspection, Yes normocephalic and Yes atraumatic Ears: external ears normal General nose exam: Normal external nose present Face and sinus: Yes normal facial exam Mouth: Normal oral and palatal mucosa present Throat: Yes posterior oropharynx normal Eyes: General: appearance normal, both eyes and all related structures Neck: Neck: Yes normal visual inspection, Yes no lymphadenopathy, Yes trachea midline and Yes supple Chest: Chest palpation & inspection: normal inspection of the chest and normal palpation of entire chest wall Resp: Other: Patient has some wheezing at the end of expiration, breath sounds symmetric bilaterally, no rhonchi or rales Cardio: Rate: regular rate Rhythm: regular rhythm Heart sounds: S1 normal heart sound present, S2 normal heart sound present and no murmurs GI: Inspection: Yes normal to inspection Palpation (GI): Soft to palpation, nontender and no guarding Auscultation: normal bowel sounds : General: Yes no CVA tenderness Back/Spine/Pelvis: Back: no CVA tenderness Skin: General skin exam: no rashes or lesions noted Neuro: Cognition (Neuro): normal cognition Motor exam (neuro): 5/5 motor strength present throughout Extrem: General: Yes normal to inspection Psych: Appearance: grossly normal Speech and movement: Normal speech and movement present Affect: normal affect Attitude: cooperative Medications Administered Discontinued Medications Generic Name Dose Route Start Last Admin Trade Name Freq PRN Reason Stop Dose Admin Albuterol Sulfate 4 puff 02/28/23 09:13 02/28/23 09:28 Albuterol Sulfate 90 Mcg 8 Gm Inhaler INHALE 02/28/23 09:14 4 puff ONCE STA Administration Benzonatate 200 mg 02/28/23 09:15 02/28/23 09:32 Benzonatate 100 Mg Capsule PO 02/28/23 09:16 200 mg ONCE ONE Administration Medical Decision Making Medical Decision Making MDM Narrative: 32-year-old female who presents emergency department for evaluation persistent, nonproductive cough, chest pain, shortness of breath chills, nausea and vomiting x2 days. Patient's vital signs were normal with an O2 saturation of 97% on room air. Lung exam did reveal diffuse wheezing at the end of expiration. I ordered a COVID-19, influenza and chest x-ray two view on the patient. Patient was ordered to get albuterol 4 puffs with a spacer x1 and Tessalon Perles 200 mg orally. 1040: My interpretation patient's laboratory evaluation is as follows: COVID-19 negative. Influenza negative. The patient's chest x-ray is concerning for reticulonodular pattern consistent with either an atypical bacterial pneumonia verses viral pneumonia. I did discuss this with the patient and the patient will be started on Zithromax Z-Sam, Tessalon Perles and albuterol inhaler 2 puffs every 4 hours while awake. She was given printed and verbal instructions and discharged home. She was also given a work note. Differential Diagnosis Differential diagnosis includes was not limited to viral bronchitis, bacterial bronchitis, bronchospasm, viral syndrome, COVID-19, influenza Lab Data Labs: Lab Results 02/28/23 Range/Units 08:55 Influenza Type A (PCR) NEGATIVE (Negative) Influenza Type B (PCR) NEGATIVE (Negative) RSV RNA Qual (PCR) NEGATIVE (Negative) SARS-CoV-2 RNA (RT-PCR) NEGATIVE (Negative) Independent Interpretation I performed an independent interpretation of an: Plain X-Ray Interpretation: My independent interpretation of her Chest x-ray two view is as follows: Reticular nodule pattern consistent with atypical pneumonia/follow pneumonia Radiology Impression Discussion of test interpretation with radiology: I have reviewed the radiologist's reading. Radiologist Impression: XR chest 2V IMPRESSION: Peribronchial thickening. No focal consolidation. Dictated By:Miguel Duenas MDSigned By:<Electronically signed by Miguel Duenas MD in [place]>02/28/23 1027 Discharge Plan Discharge Clinical Impression: Pneumonia Qualifiers: Pneumonia type: due to unspecified organism Laterality: bilateral Patient Disposition: Home, Self-Care Instructions: Community Acquired Pneumonia (DC) Additional Instructions: Your COVID-19 and influenza tests were negative. Your chest x-ray has a reticular nodular pattern to it which is consistent with either an atypical bacterial pneumonia (walking pneumonia) or a viral pneumonia. Take Zithromax (azithromycin) Z-Sam as prescribed. Day 1 take 2 pills, each day after that take 1 pill for total of 5 days. This medication states in your system for 7-10 days and continues to work despite only taking it for 5 days. Take Tessalon Perles 200 mg pills, 1 pill every 6 hours as needed for cough. Use the albuterol inhaler with the spacer, 2 puffs every 4 hours while awake to help with your coughing and shortness of breath. Follow-up with your doctor in 2 days. Please return to the emergency department if your symptoms get worse or if you develop any symptoms that are concerning to you. Please see the work note. Prescriptions: New azithromycin [Zithromax Z-Sam] 250 mg tablet See Rx Instructions .ROUTE .COMPLEX Qty: 6 0RF Rx Instructions: take 500 mg today (day 1), then 250 mg for 4 days (days 2-5) benzonatate 200 mg capsule 200 mg PO TID PRN (Reason: cough) Qty: 15 0RF No Action levonorgestrel-ethinyl estrad [Altavera (28)] 0.15-0.03 mg tablet 1 tab PO DAILY Qty: 84 0RF Rx Instructions: For the 1st 4 days, take 4 tablets, next 3 days, take 3 tablets, next 2 days take 2 tablets, then 1 tablet oral daily Stand Alone Forms: Work/School Release
[2023-02-28] MEDS: Albuterol Sulfate 90 MCG 8 GM INHALER 4 PUFF INHALE (09:28)
[2023-02-28 09:29] VITALS: PULSE 84; RESP 16; O2SAT 99
[2023-02-28] MEDS: Benzonatate 100 MG CAPSULE 200 MG PO (09:32)
[2023-02-28 09:33] VITALS: PULSE 90; RESP 19; O2SAT 99
[2023-02-28 09:36] LABS: Influenza A PCR NEGATIVE (Negative); Influenza B PCR NEGATIVE (Negative); Resp Syncy Virus RNA Qual PCR NEGATIVE (Negative); SARS COV2 PCR INHOUSE NEGATIVE (Negative)
[2023-02-28 10:52] VITALS: BP 127/70; PULSE 77; RESP 18; O2SAT 98
--- NOTE | 2023-02-28 10:53 | PC.NURSE ---
skin wpd, improved cough but still present, inst reviewed w human capital consultant
== END 2023-02-28 10:54 | disposition home or self-care (01) ==
PROVIDERS: Emergency Provider Emergency Medicine Emergency Medical Services; PCP Nurse Practitioner
DX: J18.9 Pneumonia, unspecified organism (principal); Z20.822 Contact with and (suspected) exposure to COVID-19; Z20.828 Contact with and (suspected) exposure to other viral communicable diseases
CPT/HCPCS: 0241U; 71046; 94640; 94664; 99284

== ENCOUNTER 2023-02-28 19:51 | Emergency (ER) | payer MEDICAID, SELFPAY ==
--- NOTE | ~2023-02-28 | XR_ITS ---
EXAMINATION: XR chest 2V CLINICAL INFORMATION: Shortness of breath COMPARISON: Prior chest x-ray same day earlier. TECHNIQUE: XR chest 2V Lungs and Nilda: Minimal bilateral peribronchial wall thickening might be small airway disease unchanged. Pleura: Normal. Costophrenic angles are sharp. No pneumothorax. Heart: The heart is normal in size. Mediastinum: The mediastinum is within normal limits.. Bones: Skeletal structures included are normal for patient's age. XR/XR chest 2V IMPRESSION: * Minimal bilateral peribronchial wall thickening might be small airway disease. * No radiographic evidence of acute infiltrate pneumonia.
[2023-02-28 20:00] VITALS: BP 130/83; PULSE 82; O2SAT 98
== END 2023-02-28 22:28 | disposition left against medical advice (07) ==
PROVIDERS: Emergency Provider Emergency Medicine
DX: R06.02 Shortness of breath (principal)
CPT/HCPCS: 71046; 99283

== ENCOUNTER 2023-06-13 07:29 | Emergency (ER) | payer MEDICAID, SELFPAY ==
--- NOTE | ~2023-06-13 | CT_ITS ---
EXAMINATION: CT ABDOMEN AND PELVIS WITH CONTRAST CLINICAL INFORMATION: Right lower quadrant pain COMPARISON: Ultrasound pelvis 06/21/2022 TECHNIQUE: Multidetector volumetric images were obtained from the superior aspect of the liver through the pubic symphysis following administration 85 mL of Omnipaque 350 intravenous contrast. Sagittal and coronal reformatted images were obtained on the technologist's workstation. Oral contrast: No This CT examination was performed using dose optimization techniques as appropriate, variously including the following: *Automated exposure control *Adjustment of mA and/or kV according to patient size (this includes techniques or standardized protocols for targeted exams where dose is matched to indication/reason for exam; i.e. extremities or head) *Use of iterative reconstruction technique DLP: 634 mGy-cm FINDINGS: LUNG BASES: The visualized lung bases are unremarkable. LIVER, GALLBLADDER, AND BILIARY TREE: The liver is normal in size, shape, and attenuation. No focal hepatic lesion or biliary ductal dilatation is present. Status post cholecystectomy. PANCREAS: Unremarkable. SPLEEN: Unremarkable. ADRENAL GLANDS: Unremarkable. KIDNEYS AND URETERS: The kidneys are normal in size, shape, and attenuation. Probable 2 mm nonobstructing left lower pole renal calculus (3:212). No hydronephrosis, hydroureter, or additional calculi seen. No perinephric stranding. BLADDER: Unremarkable. GASTROINTESTINAL TRACT: The small and large bowel are unremarkable. The appendix is unremarkable. ABDOMINAL WALL: No significant hernia is appreciated. LYMPH NODES: No retroperitoneal lymphadenopathy. VASCULAR: Unremarkable. The left ovarian vein is mildly dilated but there is no reflux seen. PELVIC VISCERA: The uterus and adnexa are unremarkable. Bilateral small complex ovarian cysts are present. No free intraperitoneal fluid is present. OSSEOUS STRUCTURES: Unremarkable. CT/CT abdomen pelvis w IV con IMPRESSION: A cause for the patient's right lower quadrant pain has not been found. The appendix is normal. Fleischner guidelines were followed.
--- NOTE | ~2023-06-13 | US_ITS ---
EXAMINATION: US PELVIS CLINICAL INFORMATION: Right lower quadrant pain COMPARISON: CT abdomen pelvis performed earlier today and ultrasound pelvis 06/21/2022 TECHNIQUE: Ultrasound of the pelvis is performed using both transabdominal and transvaginal transducers along with Doppler. Transvaginal imaging is performed due to inadequate visualization transabdominally. FINDINGS: Uterus: The uterus is anteverted and measures 9.4 x 4.3 x 5.4 cm. The double wall endometrial thickness is 0.7 mm. The uterus is smooth in contour and has normal myometrial echogenicity. No visible fibroid. Multiple nabothian cysts are seen in the cervix. Adnexa: Both ovaries are visualized with endovaginal imaging only. There is normal color flow to the adnexa. There is no ovarian torsion. There is no pelvic ascites or fluid collection. Right ovary measures 2.9 x 2.2 x 1.9 cm for a volume of 6.5 mL and appears normal. Left ovary measures 2.2 x 1.9 x 2.1 cm for a volume of 4.5 mL and appears normal. US/US pelvic and transvaginal IMPRESSION: Negative exam.
--- NOTE | ~2023-06-13 | US_ITS ---
EXAMINATION: US PELVIS CLINICAL INFORMATION: Right lower quadrant pain COMPARISON: CT abdomen pelvis performed earlier today and ultrasound pelvis 06/21/2022 TECHNIQUE: Ultrasound of the pelvis is performed using both transabdominal and transvaginal transducers along with Doppler. Transvaginal imaging is performed due to inadequate visualization transabdominally. FINDINGS: Uterus: The uterus is anteverted and measures 9.4 x 4.3 x 5.4 cm. The double wall endometrial thickness is 0.7 mm. The uterus is smooth in contour and has normal myometrial echogenicity. No visible fibroid. Multiple nabothian cysts are seen in the cervix. Adnexa: Both ovaries are visualized with endovaginal imaging only. There is normal color flow to the adnexa. There is no ovarian torsion. There is no pelvic ascites or fluid collection. Right ovary measures 2.9 x 2.2 x 1.9 cm for a volume of 6.5 mL and appears normal. Left ovary measures 2.2 x 1.9 x 2.1 cm for a volume of 4.5 mL and appears normal. US/US pelvic ovarian doppler IMPRESSION: Negative exam.
[2023-06-13 07:33] VITALS: BP 114/75; PULSE 92; RESP 20; TEMP 36.8; O2SAT 98; BMI 36.1
--- NOTE | 2023-06-13 07:50 | PC.NURSE ---
pt aox4, ambulatory. reporting 8/10 sometimes 10/10 lower right side abd pain and headache. Pt reports that headache started first, and at 5am abd pain started and became so severe that she wanted to get checked out. Denies associated N/V/D/C, endorses headache also on right frontal area. Pt had a positive home test last week, denies vaginal bleeding. Pt tearful
[2023-06-13 08:08] VITALS: BP 113/62; PULSE 76; RESP 18; TEMP 36.8; O2SAT 98
[2023-06-13 08:12] LABS: UPreg QC Valid YES; Urine Pregnancy NEGATIVE (NEGATIVE)
[2023-06-13 08:12] LABS: Appearance Urine Clear; Color Urine Yellow; Glucose Urine UA Negative (Negative); Leukocyte Esterase Urine Negative (Negative); Nitrite Urine Negative (Negative); Specific Gravity - Urine <= 1.005 (1.005-1.025); Urine Blood Negative (Negative); Urine Ketones Negative (Negative); Urine Protein Negative (Neg-Trace)
[2023-06-13 08:19] LABS: MANUAL DIFF FLAG NO
[2023-06-13 08:21] LABS: Basophils Absolute Auto 0.1 X10*3/uL (0.0-0.2); Basophils Percent Auto 0.8 % (0-2); Eosinophils Absolute Auto 0.3 X10*3/uL (0.0-0.4); Eosinophils Percent Auto 2.7 % (0-4); Hematocrit 38.4 % (37.0-47.0); Hemoglobin 13.1 g/dl (12.0-16.0); Imm Gran Abs Auto 0.02 X10*3/uL (0.00-0.03); Imm Gran Pct Auto 0.2 % (0.0-0.4); Lymphocytes Absolute Auto 2.4 X10*3/uL (1.2-4.9); Lymphocytes Percent Auto 22.8 % (20-40); Mean Corpuscular HGB Conc 34.1 g/dl (31.0-35.0); Mean Corpuscular Hemoglobin 31.1 pg (27.0-33.0); Mean Corpuscular Volume 91.2 fL (80.0-98.0); Mean Platelet Volume 10.6 fL (9.4-12.3); Monocytes Absolute Auto 0.8 X10*3/uL (0.1-1.2); Monocytes Percent Auto 7.2 % (2-11); Neutrophils Absolute Auto 7.1 x10*3/uL (2.0-8.3); Neutrophils Percent Auto 66.3 % (45-73); Platelet Count 367 X10*3/uL (160-400); Red Blood Count 4.21 X10*6/uL (4.20-5.50); Red Cell Distribution Width 12.4 % (11.0-16.0); White Blood Count 10.7 X10*3/uL (4.8-10.8)
--- NOTE | 2023-06-13 08:25 | ED_ITS ---
HPI - General Adult General Chief complaint: Abdominal Pain Stated complaint: Abdominal Pain Headache Time Seen by Provider: 06/13/23 08:11 Source: patient Mode of arrival: ambulatory Limitations: no limitations History of Present Illness HPI narrative: Patient is a 32-year-old female with a past medical history of multiple C- sections and kidney stones presenting with right lower abdominal/groin pain and headache. Patient reports she had a headache (diffuse, no vision changes, or dizziness) this morning and at around 06:00 developed abdominal pain. Patient's that she has had similar pain to this in the past, has noted that recently pain is worse with heavy lifting (>30lbs she tells me). Patient reports that heat pack did not alleviate her pain today. Patient reports last menstrual period was in mid March. Patient reports several positive home tests but denies seeing an route delivery manager or PCP for any care shes unclear if shes pregnatn though. Patient denies fever, chills, nausea, vomiting, headache, vision changes, numbness, tingling, chest pain, shortness of breath. Related Data Previous Rx's Medication Instructions Recorded levonorgestrel 0.15 mg-ethinyl 1 tab PO DAILY #84 tabs 06/21/22 estradiol 0.03 mg tablet (Altavera (28)) azithromycin 250 mg tablet See Rx Instructions PO .COMPLEX #6 02/28/23 (Zithromax Z-Sam) tabs benzonatate 200 mg capsule 200 mg PO TID PRN cough #15 caps 02/28/23 ketorolac 10 mg tablet 10 mg PO TID PRN pain 5 days #15 06/13/23 tabs Allergies Allergy/AdvReac Type Severity Reaction Status Date / Time peanut [PEANUT] Allergy Unknown UNKNWON Verified 02/28/23 08:28 shellfish derived Allergy Swelling Verified 06/13/23 07:35 Review of Systems Review of Systems: Constitutional : No Weight loss, No Fever, No Chills ENT/Mouth :? No sore throat, No Rhinorrhea Eyes: No Swelling, No Redness Cardiovascular : No Chest Pain, No SOB, No Edema Respiratory : No Cough, No Sputum, No Wheezing Gastrointestinal : no Nausea, no Vomiting, no Diarrhea, positive abdominal Pain, No Hematochezia, No Melena Genitourinary : No Dysuria, No Urinary Frequency, No Hematuria, No Urgency Musculoskeletal : No joint pain, No Myalgias, No Joint Swelling Skin : No Skin Lesions, No rash Neuro : No Weakness, No Numbness, No Dizziness, + Headache All other systems reviewed and are negative. Yes all other systems are reviewed and are negative [facility] Past Medical History Attestation statement: The following information was validated with the patient. Source: old records reviewed and nursing notes reviewed Social History Social History Alcohol intake: never Smoked in Last 30 Days: No Use of substances other than those prescribed or required for medical reasons: No Advance Directives: No Advance Directives Information Provided: Yes Physical Exam ED Vital Signs: Vital Signs - 24 hr 06/13/23 07:33 06/13/23 08:08 06/13/23 10:22 Temperature 98.2 F 98.3 F 98.3 F Pulse Rate 92 76 64 Respiratory Rate 20 18 15 Blood Pressure 114/75 113/62 117/67 Pulse Oximetry 98 98 98 Oxygen Delivery Method Room Air Room Air 06/13/23 12:43 Temperature Pulse Rate 76 Respiratory Rate 16 Blood Pressure 122/74 Pulse Oximetry 99 Oxygen Delivery Method Room Air BMI result Body Mass Index 36.1 vss Appearance: Alert.? Oriented X3.? No acute distress.? Head: Normocephalic, atraumatic, no step-offs or deformities Eyes: Pupils equal, round and reactive to light.? Neck: Normal inspection.? Neck supple.? CVS: Normal heart rate and rhythm.? Pulses normal.? Respiratory: No respiratory distress.? Breath sounds normal.? Abdomen: Soft. Tenderness to the right lower abdomen/groin area. Skin: Skin warm and dry.? Normal skin color.? Normal skin turgor.? Extremities: No lower extremity edema.? No calf ttp. 5/5 strength to bilateral upper and lower extremities Back: No midline tenderness, full range of motion, no CVA tenderness bilaterally Neuro: Oriented X 3.? No motor deficit.? No sensory deficit. CN 2-12 intact NIHSS 0 Course Reevaluation(s) Reevaluation #1: CBC within normal limits. Chemistry unremarkable. UA clean. Urine preg negative. US pelvic ovarian w/o torsion. Negative pelvic and transvaginal exam. CT abdmen and pelvis unremarkable, normal appendix. Time: 12:22 Reevaluation #2: Patient feeling better. Tolerating p.o.. Advised her to follow-up with PCP. Given Toradol. Educated patient on diagnosis and treatment plan, answered all question, patient verbalizes understanding. At this time patient will be discharged home, advised to return with new or worsening symptoms. Educated on worrisome signs and symptoms and when to return. At this time I feel comfortable discharge home. Medications Administered Discontinued Medications Generic Name Dose Route Start Last Admin Trade Name Roby PRN Reason Stop Dose Admin Iohexol 85 ml 06/13/23 08:54 06/13/23 08:55 Iohexol 350 Mg/Ml 100 Ml Infus..Btl IV 06/13/23 08:55 85 ml ONCE ONE Administration Medical Decision Making Medical Decision Making [facility] Narrative: [id number] Patient is a 32-year-old female presenting with right lower abdominal pain/ groin pain and now a diffuse headache. Physical exam positive for right lower abdominal/groin tenderness to palpation. versus kidney stones versus ovarian cyst vs hernia. Likely typical headache. . Will rule out ovarian torsion, UTI, appendicitis, diverticulitis, miscarriage. Unlikely torsion, acute abdomen, ectopic Plan- labs, imaging, urine Differential Diagnosis Differential Diagnoses: The differential diagnosis associated with the presentation includes versus kidney stones versus ovarian cyst vs hernia. Likely typical headache. . Will rule out ovarian torsion, UTI, appendicitis, diverticulitis, miscarriage. Unlikely torsion, acute abdomen, ectopic Admission/Observation Consideration of admission/observation: Escalation of care including admission/observation considered Not likely Lab Data MDM Lab Attestation statement: I reviewed the patient's lab results. 06/13/23 08:14 06/13/23 08:14 Labs: Lab Results 06/13/23 06/13/23 06/13/23 Range/Units 07:56 08:05 08:14 WBC 10.7 (4.8-10.8) X10*3/uL RBC 4.21 (4.20-5.50) X10*6/uL Hgb 13.1 (12.0-16.0) g/dl Hct 38.4 (37.0-47.0) % MCV 91.2 (80.0-98.0) fL MCH 31.1 (27.0-33.0) pg MCHC 34.1 (31.0-35.0) g/dl RDW 12.4 (11.0-16.0) % Plt Count 367 (160-400) X10*3/uL MPV 10.6 (9.4-12.3) fL Immature Gran % (Auto) 0.2 (0.0-0.4) % Neut % (Auto) 66.3 (45-73) % Lymph % (Auto) 22.8 (20-40) % [place] % (Auto) 7.2 (2-11) % Eos % (Auto) 2.7 (0-4) % Baso % (Auto) 0.8 (0-2) % Lymph # (Auto) 2.4 (1.2-4.9) X10*3/uL Morgan # (Auto) 0.8 (0.1-1.2) X10*3/uL Eos # (Auto) 0.3 (0.0-0.4) X10*3/uL Baso # (Auto) 0.1 (0.0-0.2) X10*3/uL Abs Immat Gran (auto) 0.02 (0.00-0.03) X10*3/uL Absolute Neuts (auto) 7.1 (2.0-8.3) x10*3/uL Absolute Nucleated RBC 0.000 (0.0-0.012) X10*3/uL Nucleated RBC % (auto) 0.0 (0.0-0.2) /100WBC Sodium (135-145) mmol/L Potassium (3.3-5.1) mmol/L Chloride (96-108) mmol/L Carbon Dioxide (22-29) mmol/L Anion Gap (12-20) BUN (9-16) mg/dL Creatinine (0.5-1.4) mg/dL Estim Creat Clear Calc Estimated GFR Random Glucose (60-115) mg/dL Calcium (8.4-10.2) mg/dL Magnesium (1.6-2.6) mg/dL Total Bilirubin (0.0-1.0) mg/dL AST (5-31) U/L ALT (0-31) U/L Alkaline Phosphatase (39-117) U/L Total Protein (6.5-8.0) g/dL Albumin (3.5-5.0) g/dL Lipase (8-78) U/L Beta HCG, Quant mIU/mL Urine Color Yellow Urine Appearance Clear Urine pH 7.0 (5.0-9.0) Ur Specific [place] <= 1.005 (1.005-1.025) Urine Protein Negative (Neg-Trace) mg/dL Urine Glucose (UA) Negative (Negative) mg/dL Urine Ketones Negative (Negative) mg/dL Urine Blood Negative (Negative) Urine Nitrite Negative (Negative) Ur Leukocyte Esterase Negative (Negative) Urine Test NEGATIVE (NEGATIVE) 06/13/23 06/13/23 Range/Units 08:14 12:11 WBC (4.8-10.8) X10*3/uL RBC (4.20-5.50) X10*6/uL Hgb (12.0-16.0) g/dl Hct (37.0-47.0) % MCV (80.0-98.0) fL MCH (27.0-33.0) pg MCHC (31.0-35.0) g/dl RDW (11.0-16.0) % Plt Count (160-400) X10*3/uL MPV (9.4-12.3) fL Immature Gran % (Auto) (0.0-0.4) % Neut % (Auto) (45-73) % Lymph % (Auto) (20-40) % Morgan % (Auto) (2-11) % Eos % (Auto) (0-4) % Baso % (Auto) (0-2) % Lymph # (Auto) (1.2-4.9) X10*3/uL Morgan # (Auto) (0.1-1.2) X10*3/uL Eos # (Auto) (0.0-0.4) X10*3/uL Baso # (Auto) (0.0-0.2) X10*3/uL Abs Immat Gran (auto) (0.00-0.03) X10*3/uL Absolute Neuts (auto) (2.0-8.3) x10*3/uL Absolute Nucleated RBC (0.0-0.012) X10*3/uL Nucleated RBC % (auto) (0.0-0.2) /100WBC Sodium 139 (135-145) mmol/L Potassium 3.8 (3.3-5.1) mmol/L Chloride 107 (96-108) mmol/L Carbon Dioxide 26 (22-29) mmol/L Anion Gap 10 L (12-20) BUN 12 (9-16) mg/dL Creatinine 0.70 (0.5-1.4) mg/dL Estim Creat Clear Calc 110.8 Estimated GFR > 60 Random Glucose 100 (60-115) mg/dL Calcium 9.6 (8.4-10.2) mg/dL Magnesium 2.1 (1.6-2.6) mg/dL Total Bilirubin 0.3 (0.0-1.0) mg/dL AST 17 (5-31) U/L ALT 22 (0-31) U/L Alkaline Phosphatase 90 (39-117) U/L Total Protein 6.8 (6.5-8.0) g/dL Albumin 3.8 (3.5-5.0) g/dL Lipase 25 (8-78) U/L Beta HCG, Quant < 2 mIU/mL Urine Color Urine Appearance Urine pH (5.0-9.0) Ur Specific [place] (1.005-1.025) Urine Protein (Neg-Trace) mg/dL Urine Glucose (UA) (Negative) mg/dL Urine Ketones (Negative) mg/dL Urine Blood (Negative) Urine Nitrite (Negative) Ur Leukocyte Esterase (Negative) Urine Test (NEGATIVE) Independent Interpretation I performed an independent interpretation of an: Ultrasound (US/US pelvic and transvaginal IMPRESSION: Negative exam.US/US pelvic ovarian doppler IMPRESSION: Negative exam.) and CT Scan (CT/CT abdomen pelvis w IV con IMPRESSION: A cause for the patient's right lower quadrant pain has not been found. The appendix is normal. Fleischner guidelines were followed.) Radiology Impression Discussion of test interpretation with radiology: I have reviewed the radiologist's reading. Prescription Management I considered prescription management with: Pain Medication Core Measures AMI core measures followed: Yes Measure exclusions: not indicated Critical Care Time Critical Care Time Critical Care Time: No Discharge Plan Discharge Clinical Impression: Abdominal pain Patient Disposition: Home, Self-Care Instructions: Abdominal Pain (ED) Additional Instructions: Take your medications as prescribed. If you were prescribed antibiotics today, it is important that you take your medication to their entirety, do not skip any doses, do not finish them early. Follow-up with your primary care provider this week. Return to the emergency department with new or worsening symptoms. Such as fevers, chills, chest pain, shortness of breath, nausea, vomiting, dizziness, headache, vision changes, lethargy In case of emergency call 911 Toradol has been sent to your pharmacy, you tolerated this well in the department. Please take this as prescribed do not take this with ibuprofen, or other NSAIDs, do not mix this with alcohol. Side effects of this medication including increased risk for bleeding and possible kidney injury. Prescriptions: New ketorolac 10 mg tablet 10 mg PO TID PRN (Reason: pain) 5 Days Qty: 15 0RF No Action levonorgestrel-ethinyl estrad [Altavera (28)] 0.15-0.03 mg tablet 1 tab PO DAILY Qty: 84 0RF Rx Instructions: For the 1st 4 days, take 4 tablets, next 3 days, take 3 tablets, next 2 days take 2 tablets, then 1 tablet oral daily azithromycin [Zithromax Z-Sam] 250 mg tablet See Rx Instructions .ROUTE .COMPLEX Qty: 6 0RF Rx Instructions: take 500 mg today (day 1), then 250 mg for 4 days (days 2-5) benzonatate 200 mg capsule 200 mg PO TID PRN (Reason: cough) Qty: 15 0RF Referrals: [facility] [Provider Group] - 1 week Center,[facility] [Primary Care Provider] - 2 days Stand Alone Forms: Work/School Release Interventions: ED Discharge Assessment Last Done: 06/13/23 12:44 Discharge Date/Time: 06/13/23 12:46
[2023-06-13 08:39] LABS: Alanine Aminotransferase 22 U/L (0-31); Albumin Level 3.8 g/dL (3.5-5.0); Alkaline Phosphatase 90 U/L (39-117); Anion Gap 10 (12-20); Aspartate Amino Transferase 17 U/L (5-31); Bilirubin Total 0.3 mg/dL (0.0-1.0); Blood Urea Nitrogen 12 mg/dL (9-16); Calcium 9.6 mg/dL (8.4-10.2); Carbon Dioxide 26 mmol/L (22-29); Chloride 107 mmol/L (96-108); Creatinine Clr Calc Pharmacy 110.8; Estimated Glomerular Filt Rate > 60; Glucose Random 100 mg/dL (60-115); Lipase 25 U/L (8-78); Magnesium 2.1 mg/dL (1.6-2.6); Potassium 3.8 mmol/L (3.3-5.1); Sodium 139 mmol/L (135-145); Total Protein 6.8 g/dL (6.5-8.0)
--- NOTE | 2023-06-13 08:47 | PC.NURSE ---
IV inserted, labs drawn. Pt to CT scan
[2023-06-13] MEDS: iohexoL 350 MG/ML 100 ML INFUS..BTL 85 ML IV (08:55)
--- NOTE | 2023-06-13 09:35 | PC.NURSE ---
Patient went down to ultrasound.
--- NOTE | 2023-06-13 09:59 | PC.NURSE ---
Patient returned from ultrasound
[2023-06-13 10:22] VITALS: BP 117/67; PULSE 64; RESP 15; TEMP 36.8; O2SAT 98
[2023-06-13 12:43] VITALS: BP 122/74; PULSE 76; RESP 16; O2SAT 99
[2023-06-13 12:51] LABS: HCG Quantitative < 2 mIU/mL
== END 2023-06-13 12:46 | disposition home or self-care (01) ==
PROVIDERS: Physician Assistant; Emergency Provider Emergency Medicine
DX: R10.31 Right lower quadrant pain (principal)
CPT/HCPCS: 36415; 74177; 76830; 76856; 80053; 81003; 81025; 83690; 83735; 84702; 85025; 93975; 99284; Q9967

== ENCOUNTER 2023-08-07 16:03 | Outpatient (REF) | payer MEDICAID, SELFPAY ==
[2023-08-08 07:08] LABS: CT PCR NOT DETECTED (Not Detect.); NG PCR NOT DETECTED (Not Detect.)
== END 2023-08-07 16:04 | disposition home or self-care (01) ==
LOC: HO.HHCLNP 16:03
PROVIDERS: Visit Provider Nurse Practitioner Primary Care
DX: Z11.3 Encounter for screening for infections with a predominantly sexual mode of transmission (principal)
CPT/HCPCS: 0353U

== ENCOUNTER 2024-01-31 14:09 | Outpatient (REF) | payer MEDICAID, SELFPAY ==
[2024-01-31 16:36] LABS: HCG Quantitative < 2 mIU/mL
== END 2024-01-31 14:10 | disposition home or self-care (01) ==
LOC: HO.HHCL 14:09
PROVIDERS: Visit Provider Advanced Practice Midwife
DX: N92.6 Irregular menstruation, unspecified (principal)
CPT/HCPCS: 36415; 84702

== ENCOUNTER 2024-06-20 13:49 | Outpatient (REF) | payer MEDICAID, SELFPAY | END 2024-06-20 13:50 | disposition home or self-care (01) | LOC: HO.SH 13:49 | PROVIDERS: Visit Provider Nurse Practitioner Primary Care | DX: Z01.118 Encounter for examination of ears and hearing with other abnormal findings (principal); H90.41 Sensorineural hearing loss, unilateral, right ear, with unrestricted hearing on the contralateral side | CPT/HCPCS: 92557; 92567 ==

== ENCOUNTER 2024-09-15 11:44 | Outpatient (REF) | payer MEDICAID, SELFPAY ==
[2024-09-15 13:41] LABS: Estimated Average Glucose 94 mg/dL; Hemoglobin A1C 112.1334 umol/L; Hemoglobin A1c % 4.9 % (<6.0); Total Hemoglobin (HGBA1C) 3690.3454 umol/L
[2024-09-15 14:31] LABS: Cholesterol 169 mg/dL (<200); HDL Cholesterol 47 mg/dL (>40); LDL Cholesterol Calculated 106 mg/dL (<100); Triglycerides 81 mg/dL (<150)
[2024-09-15 14:48] LABS: TSH reflex Free T4 0.71 uIU/mL (0.32-4.0)
[2024-09-16 11:42] LABS: Prolactin 8.2 ng/mL
== END 2024-09-15 11:45 | disposition home or self-care (01) ==
LOC: HO.HHCL 11:44
PROVIDERS: PCP Nurse Practitioner Primary Care; Referring Provider Advanced Practice Midwife; Visit Provider Nurse Practitioner Primary Care
DX: Z13.1 Encounter for screening for diabetes mellitus (principal); Z13.220 Encounter for screening for lipoid disorders; N92.6 Irregular menstruation, unspecified
CPT/HCPCS: 36415; 80061; 83036; 84146; 84443

== ENCOUNTER 2024-09-17 16:09 | Outpatient (REF) | payer MEDICAID, SELFPAY ==
[2024-09-22 12:49] LABS: HPV mRNA E6/E7 Not Detected (Not Detected)
== END 2024-09-17 16:10 | disposition home or self-care (01) ==
LOC: HO.HHCLNP 16:09
PROVIDERS: Visit Provider Advanced Practice Midwife
DX: Z12.4 Encounter for screening for malignant neoplasm of cervix (principal)
CPT/HCPCS: 87624; 88175

== ENCOUNTER 2025-04-17 09:32 | Outpatient (REF) | payer MEDICAID, SELFPAY ==
--- OUTSIDE RECORDS SUMMARY | 2025-04-17 09:48 | XMS_ITS | Encounter Summary ---
Author Organization [employer] Address [address] [place] [address] Care Team Providers Care Tapper Bit Name Role Phone Barbie Hart Primary Care Provider [phone] Sundeep Arambula RN Unavailable [phone] Encounter Details Date Type Department Care Team (Late st Contact Info) Description 07/10/2023 Abstract [facility] [address] [place], [place] [id number] Deonna, Alma [address] [place], [place] [id number] Social History Tobacco Use Types Packs/Day Years Used Date Smoking Tobacco: Former Cigarettes 0.2 13 Passive Smoke Exposure: Past Smokeless Tobacco: Never Alcohol Use Standard Drinks/Week Comments Not Currently 0 (1 standard drink = 0.6 oz pur e alcohol) Overall Financial Resource Strain (CARDIA) Answe r Date Recorded How hard is it for you to pa y for the very basics like food, housing, medical care, and heating? Not hard at all 11/17/2022 Hunger Vital Sign Answer Date Recorded Within the past 12 months, y ou worried that your food would run out before you got the money to buy more. Never true 11/17/20 22 Within the past 12 months, t he food you bought just didn't last and you didn't have money to get more. Never true 11/17/2022 PRAPARE - Transportation Answer Date Re corded In the past 12 months, has l ack of transportation kept you from medical appointments or from getting medications? No 10/27 In the past 12 months, has l ack of transportation kept you from meetings, work, or from getting things needed for daily living? No 11/17/2022 Housing Stability Vital Sign Answer Juan e Recorded In the last 12 months, was t here a time when you were not able to pay the mortgage or rent on time? No 11/17/2022 In the last 12 months, how many places have you lived? 2 11/17/2022 In the last 12 months, was t here a time when you did not have a steady place to sleep or slept in a [place] (including now)? No 11/17/2022 Alcohol Answer Date Recorded Q1: How often do you have a drink containing alc ohol? 1 11/17/2022 Q2: How many drinks containi ng alcohol do you have on a typical day when you are drinking? 0 11/17/2022 Q3: How often do you have six or more drinks on one occasion? 1 11/17/2022 Depression Answer Date Recorded Patient Health Questionnaire-9 Score 14 11/17/2022 Intimate Partner Violence Answer Date R ecorded Within the last year, have y ou been afraid of your partner or ex-partner? 2 11/17/2022 Within the last year, have y ou been humiliated or emotionally abused in other ways by your partner or ex-partner? 2 Within the last year, have y ou been kicked, hit, slapped, or otherwise physically hurt by your partner or ex-partner? 2 11/17/2022 Within the last year, have y ou been raped or forced to have any kind of sexual activity by your partner or ex-partner? 2 11/17/2022 Depression Answer Date Recorded Patient Health Questionnaire-2 Score 2 11/17/2022 Comments Yes Sex and Gender Information Value Date Recorded Sex Assigned at Female 09/25/2022 10:30 AM EDT Legal Sex Female 10:30 AM EDT Gender Identity Female 06/04/2023 12:49 PM EDT Sexual Orientation Straight 06/04/2023 12 :49 PM EDT documented as of this encounter Plan of Treatment Upcoming Encounters Date Type Department Care Team (Late st Contact Info) Description 07/22/2025 9:00 AM EDT Office Visit [facility] [address] [place] [address] Samson, Zina, OD [address] [place] [address] documented as of this encounter Visit Diagnoses Not on filedocumented in this encounter Additional Health Concerns Assessment Noted Time PHQ-9 Depression Total Score: 14 022 2:06 PM EST documented as of this encounter Care Teams Tapper Bit Relationship Specialty Start Date End Date Barbie Hart ANP [address] [place] [address] PCP - General Family Medicine 01/25/23 Sundeep Arambula RN [address] [place] [address] Production Administrative AssistantController Repairer And Tester 11/27/24 02/24/25 documented as of this encounter
[2025-04-17 12:01] LABS: Amphetamine Screen Urine Not Detected (Not Detect); Barbiturates, Urine Not Detected (Not Detect); Benzodiazepines Screen Urine Not Detected (Not Detect); Buprenorphine Scr Not Detected (Not Detect); Cannabinoid Screen Urine Not Detected (Not Detect); Cocaine Screen Urine Not Detected (Not Detect); Fentanyl, urine Not Detected (Not Detect); Methadone Screen, Urine Not Detected (Not Detect); Opiate Screen Urine Not Detected (Not Detect); Oxycodone Screen Urine Not Detected (Not Detect); Phencyclidine Screen Urine Not Detected (Not Detect)
[2025-04-17 12:06] LABS: TSH reflex Free T4 0.58 uIU/mL (0.32-4.0)
[2025-04-21 19:17] LABS: Testosterone, Total 28 ng/dL (2-45)
== END 2025-04-17 09:33 | disposition home or self-care (01) ==
LOC: HO.HHCL 09:32
PROVIDERS: Advanced Practice Midwife; Registered Nurse; Visit Provider Nurse Practitioner Primary Care
DX: N92.6 Irregular menstruation, unspecified (principal); F33.1 Major depressive disorder, recurrent, moderate
CPT/HCPCS: 36415; 80307; 84403; 84443

== ENCOUNTER 2025-08-14 10:51 | Outpatient (REF) | payer MEDICAID, SELFPAY ==
--- OUTSIDE RECORDS SUMMARY | 2025-08-14 09:15 | XMS_ITS | Encounter Summary ---
Author Organization [employer] Address [address] [place] [id number] Care Team Providers Care Director Telemetry Name Role Phone Sandra Avila MD Primary Care Provider [phone] Reason for Referral * Consultation (Routine) - Pending Review Specialty Diagnoses / Procedures Referred By Tarik t Referred To Contact Otolaryngology Diagnoses Phlegm in throat Sandra Avila MD [address] [place] [address] Phone: tel: fax: Referral ID Status Reason Start Date Expiration Date Visits Requested Visits Authorized [id number] Pending Review Specialty Services Required 08/14/2025 08/14/2026 1 1 * Consultation (Routine) - Authorized Specialty Diagnoses / Procedures Referred By Tarik t Referred To Contact Dermatology / Family Medicine Diagnoses Rash Sandra Avila MD [address] [place] [address] Phone: tel: fax: Urvashi Bolton MD [address] [place] [address] Phone: tel: fax: Referral ID Status Reason Start Date Expiration Date Visits Requested Visits Authorized [id number] Authorized Consult and Treat 08/14/2025 08/14/2026 1 1 Reason for Visit * Reason Comments Establish Care Encounter Details Date Type Department Care Team (Latest Contact Info) Description 08/14/2025 9:15 AM EDT Office Visit [facility] [address] [place] [address] Sandra Avila MD [address] [place] [address] Patellofemoral disorder of left knee (Primary Dx); Idiopathic intracranial hypertension; History of food allergy; Moderate episode of recurrent major depressive disorder (CMS/HCC); Acute URI; Mild intermittent asthma without complication; Rash; Sensorineural hearing loss (SNHL) of left ear with unrestricted hearing of right ear; Class 2 obesity; Encounter for health-related screening; Tuberculosis screening; Encounter for immunization; Phlegm in throat Social History Tobacco Use Types Packs/Day Years Used Date Smoking Tobacco: Every Day Cigarettes 0.3 13 Passive Smoke Exposure: Past Smokeless Tobacco: Never Alcohol Use Standard Drinks/Week Comments Not Currently 0 (1 standard drink = 0.6 oz pur e alcohol) Overall Financial Resource Strain (CARDIA) Answe r Date Recorded How hard is it for you to pa y for the very basics like food, housing, medical care, and heating? Not hard at all 11/17/2022 Alcohol Answer Date Recorded Frequency of Alcohol Consumption Not on file 01/24/2024 Average Number of Drinks Not on file 024 Frequency of Binge Drinking Not on file 12/28 Score 0 01/24/2024 Depression Answer Date Recorded Patient Health Questionnaire-9 Score 8 01/09/2025 Patient Health Questionnaire-9 Score 8 01/09/2025 Last PHQ-9: Questionnaire Data Not on file 0 01/09/2025 Housing Stability Answer Date Recorded What is your housing situation today? I have yarytori sandhu 12/18/[address] you li ve. Do you have problems with any of the following? None of the above 12/18/2024 Food Insecurity Answer Date Recorded Within the past 12 months, y ou worried that your food would run out before you got money to buy more: Often true 12/18/2024 Within the past 12 months,th e food you bought just didn't last and you didn't have enough money to get more: Often true Transportation Answer Date Recorded In the past 12 months, has l ack of transportation kept you from medical appts, meetings, work or from getting things needed for daily living? No 12/18/2024 Intimate Partner Violence Answer Date R ecorded [...] by your partner or ex-partner? 2 11/17/2022 Utilities Answer Date Recorded In the past 12 months, has t he electric, gas, oil or water company threatened to shut off services in your home? No 12/18/2024 Depression Answer Date Recorded Patient Health Questionnaire-2 Score 2 01/09/2025 Internet Access Answer Date Recorded Internet Access Q1 Yes 12/18/2024 Internet Access Q2 Not on file 12/18/2024 Comments No Sex and Gender Information Value Date Recorded Sex Assigned at Female 09/25/2022 10:30 AM EDT Legal Sex Female 10:30 AM EDT Gender Identity Female 06/04/2023 12:49 PM EDT Sexual Orientation Straight 06/04/2023 12 :49 PM EDT documented as of this encounter Last Filed Vital Signs Vital Sign Reading Time Taken Comments Blood Pressure 132/77 08/14/2025 9:20 AM EDT Pulse 76 08/14/2025 9:20 AM EDT Temperature 36.8 C (98.3 F) 08/14/2025 9:20 AM EDT Respiratory Rate 20 08/14/2025 9:20 AM EDT Oxygen Saturation 98% 08/14/2025 9:20 AM EDT Inhaled Oxygen Concentration - - Weight 85.5 kg (188 lb 6.4 oz) 08/14/2025 9:20 A M EDT Height 159 cm (5' 2.6 ) 08/14/2025 9:20 AM EDT Body Mass Index 33.8 08/14/2025 9:20 AM EDT documented in this encounter Plan of Treatment Upcoming Encounters Date Type Department Care Team (Late st Contact Info) Description 09/29/2025 10:45 AM EST Office Visit [facility] [address] [place], [place] [phone] Urvashi Bolton MD [address] [place], [place] [phone] 11/11/2025 11:30 AM EST Office Visit [facility] [address] [place] [address] Samson, Zina, OD [address] [place] [address] Scheduled Orders Name Type Priority Associated Diagnoses Orde r Schedule CBC auto differential Lab Routine Class 2 obesity Expected: 08/14/2025 (Approximate), Expires: 08/14/2026 Comprehensive Metabolic Panel Lab Routine Class 2 obesity Expected: 08/14/2025 (Approximate), Expires: 08/14/2026 TSH W/Reflex to FT4 Lab Routine Class 2 obesity Expected: 08/14/2025 (Approximate), Expires: 08/14/2026 Lipid Panel, Standard Lab Routine Class 2 obesity Expected: 08/14/2025 (Approximate), Expires: 08/14/2026 Albumin, Random Urine W/Creatinine Lab Routine Class 2 obesity Expected: 08/14/2025 (Approximate), Expires: 08/14/2026 HIV-1/2 Antigen and Antibodies, Fourth Generation, with Reflexes Lab Routine Encounter for health-related screening Expected: 08/14/2025 (Approximate), Expires: 08/14/2026 Hepatitis C Antibody with Reflex to HCV, RNA, Quantitative, Real-Time PCR Lab Routine Encounter for health-related screening Expected: 08/14/2025, Expires: 08/14/2026 Hepatitis B Surface Antibody, Qualitative Lab Routine Encounter for health-related screening Expected: 08/14/2025 (Approximate), Expires: 08/14/2026 Hepatitis B surface antigen, EIA Lab Routine Encounter for health-related screening Expected: 08/14/2025 (Approximate), Expires: 08/14/2026 Hepatitis B Core Antibody, Total Lab Routine Encounter for health-related screening Expected: 08/14/2025 (Approximate), Expires: 08/14/2026 T-SPOT .TB Lab Routine Tuberculosis screening Expected: 08/14/2025 (Approximate), Expires: 08/14/2026 Scheduled Referrals Name Type Priority Associated Diagnoses Orde r Schedule Referral to [facility] D[facility] Skin Outpatient Referral Routine Rash Expected: 08/14/2025 (Approximate), Expires: 08/14/2026 Referral to ENT Outpatient Referral Routine Phlegm in throat Expected: 08/14/2025 (Approximate), Expires: 08/14/2026 documented as of this encounter Visit Diagnoses Diagnosis Patellofemoral disorder of left knee- Primary Idiopathic intracranial hypertension Benign intracranial hypertension History of food allergy Allergy to other foods Moderate episode of recurrent major depressive disorder (CMS/HCC) Acute URI Acute upper respiratory infections of unspecified site Mild intermittent asthma without complication Rash Rash and other nonspecific skin eruption Sensorineural hearing loss (SNHL) of left ear with unrestricted hearing of right ear Class 2 obesity Encounter for health-related screening Tuberculosis screening Screening examination for pulmonary tuberculosis Encounter for immunization Phlegm in throat documented in this encounter Additional Health Concerns Assessment Noted Time PHQ-9 Depression Total Score: 8 01/09/20 25 12:17 PM EST documented as of this encounter Care Teams Director Telemetry Relationship Specialty Start Date End Date Sandra Avila MD [address] [place] [id number] PCP - General Family Medicine 08/14/25 Judy Porras NP Nurse Practitioner Neurology 05/01/25 documented as of this encounter
--- OUTSIDE RECORDS SUMMARY | 2025-08-14 11:32 | XMS_ITS | Encounter Summary ---
Author Organization [employer] Address [address] [facility] [address] [place] [address] Care Team Providers Care Literacy Consultant Name Role Phone Barbie Hart Primary Care Provider [phone] Reason for Visit * Reason Onset Date Comments chart prep 08/10/2025 Encounter Details Date Type Department Care Team ([facility] st Contact Info) Description 08/10/2025 Telephone [facility] [address] [place] [address] Sandra Avila MD [address] [place] [address] chart prep Social History Tobacco Use Types Packs/Day Years [...] is your housing situation today? I have yary sandhu 12/18/[address] you [...] the past 12 months, has t he [employer], gas, oil or water company threatened to [...] PM EDT documented as of this encounter Miscellaneous Notes * Telephone Encounter - Heather James MA - 08/10/2025 1:01 PM EDT Chart Prep Labs: done Images: done Referrals: complete Vaccines due: Covid, Flu, PCV20, and Hep B Screenings: Overdue care gaps: Not applicable documented in this encounter Plan of Treatment Upcoming Encounters Date Type Department Care Team (Late st Contact Info) Description 09/29/2025 10:45 AM EST Office Visit [facility] [address] [place] [address] Urvashi Bolton MD [address] [place] [address] 11/11/2025 11:30 AM EST Office Visit [facility] [address] [place] [address] Samson, Zina, OD [address] [place] [address] documented as of this encounter Visit Diagnoses Not on filedocumented in this encounter Additional Health Concerns Assessment Noted Time PHQ-9 Depression Total Score: 8 01/09/20 25 12:17 PM EST documented as of this encounter Care Teams Literacy Consultant Relationship Specialty Start Date End Date Barbie Hart ANP [address] [place] [address] PCP - General Family Medicine 01/25/23 08/13/25 Judy Porras NP Nurse Practitioner Neurology 05/01/25 documented as of this encounter
--- OUTSIDE RECORDS SUMMARY | 2025-08-14 11:32 | XMS_ITS | Clinical Summary ---
Author Organization [facility] [address] [facility] Address [address] [place] [address] Phone Care Team Providers Care Reception Interviewer Name Role Phone Cnade Viera APRN Primary Care Provider Allergies Active Allergy Reactions Criticality Noted Date Comments Peanut 10/12/2017 Social History Tobacco Use Types Packs/Day Years Used Date Smoking Tobacco: Never Assessed Comments Unknown Sex and Gender Information Value Date Recorded Sex Assigned at Not on file Legal Sex Female 3:42 PM EST Gender Identity Female 09/12/2024 12:11 PM EDT Sexual Orientation Straight 09/12/2024 12 :11 PM EDT Last Filed Vital Signs Vital Sign Reading Time Taken Comments Blood Pressure 148/87 10/12/2017 3:43 PM EST Pulse 90 10/12/2017 3:43 PM EST Temperature 36.7 C (98 F) 10/12/2017 3:43 PM EST Respiratory Rate 18 10/12/2017 3:43 PM EST Oxygen Saturation 99% 10/12/2017 3:43 PM EST Inhaled Oxygen Concentration - - Weight - - Height - - Body Mass Index - - Plan of Treatment Health Maintenance Due Date Last Done Comments HIV screening 2003 Hepatitis C screening 2008 Cervical cancer screening 2011 Covid-19 vaccine series ( season) 2025 Influenza vaccine 07/27/2025 11/17/2022, 09/22/2016 Tetanus adult (Td q 10,TDAP once) 12/22/2026 12/22/2016 RSV Immunization (1 - 1-dose 75+ series) 2065 Pneumococcal Vaccine (2 - 49 years) Aged Out 12/22/2016 No longer eligible b ased on patient's age to complete this topic Meningococcal B Vaccine Aged Out No l onger eligible based on patient's age to complete this topic Meningococcal Vaccine Aged Out No ashok tammy eligible based on patient's age to complete this topic Insurance #2 [place], [place] [id number] [place] [address] [place] [address] [place] Care Teams Reception Interviewer Relationship Specialty Start Date End Date Cande Viera, SEWER BRICKLAYER [address] [place] [address] [place] [phone] PCP - General 06/25/19
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
--- OUTSIDE RECORDS SUMMARY | 2025-08-14 11:32 | XMS_ITS | Clinical Summary ---
Author Organization [facility] Address [address] [place] [address] Care Team Providers Care Conference Services Coordinator Name Role Phone Unavailable Primary Care Provider Unavailabl e Source Comments PLEASE NOTE, if this patient is a minor, it may be UNLAWFUL to discuss sensitive information that is contained in these records (such as FAMILY PLANNING, MENTAL HEALTH or SUBSTANCE ABUSE) with the minor patient's parent or other person without the patient's specific authorization.[facility] Encounters Date Type Department Care Team Description 06/02/2025 / TELEPHONE [facility] [address] [place] [address] SARBJIT PINEDA [phone] Vadim Rasheed, MANPREET from Last 3 Months Social History Tobacco Use Types Packs/Day Years Used Date Smoking Tobacco: Never Assessed Comments Unknown Sex and Gender Information Value Date Recorded Sex Assigned at Female 05/11/2025 10:09 AM PDT Legal Sex Female 10:08 AM PDT Gender Identity Female 05/11/2025 10:09 AM PDT Sexual Orientation Not on file Plan of Treatment Health Maintenance Due Date Last Done Comments Anxiety Screening 1990 HPV Screening 1990 Hepatitis C Screening 1990 Pap + HPV 1990 Tobacco Screening 1990 HIV Screening 2005 Relationship Safety Screening/Counseling 2005 Hypertension Screening (#1) 2008 Imm-Hepatitis B (1 of 3 - 19 + 3-dose series) 2009 Cervical Cancer Screening 2011 Pap Smear 2011 Imm-HPV (1 - 3-dose SCDM series) 2017 Alcohol and Drug Screen 11/26/2024 Depression Annual Screen 11/26/2024 [id number] ( season) 2025 Imm-Influenza (#1) 2025 11/17/2022, 09/22/2016 Imm-DTaP/Tdap/Td (2 - Td or Tdap) 12/22/2026 017 Cervical Ablation/Cold-Knife Conization Discontinued Cervical Cryotherapy Discontinued Colposcopy Discontinued Endometrial Biopsy Discontinued Excision/Leep Discontinued HPV Genotyping Discontinued Vaginal Pap Discontinued Vulvoscopy Discontinued Insurance [facility]
--- OUTSIDE RECORDS SUMMARY | 2025-08-14 11:32 | XMS_ITS | Encounter Summary ---
Author Organization [employer] Address [address] [facility] [address] 7t [place] [address] Care Team Providers Care Table Inspector Name Role Phone Sandra Avila MD Primary Care Provider [phone] Encounter Details Date Type Department Care Team (Latest Contact Info) Description 08/14/2025 Travel Social History Tobacco Use Types Packs/Day Years [...] Upcoming Encounters Date Type Department Care Team ([facility] st Contact Info) Description 09/29/2025 10:45 AM EST Office Visit [facility] CHC MED & PEDS [address] [place] [address] Urvashi Bolton MD 505 [place] [address] 11/11/2025 11:30 AM EST Office Visit [facility] OPTOMETRY [address] [place] [address] Zina Davies, OD [address] [place] [address] documented as of this encounter Visit Diagnoses Not on filedocumented in this encounter Additional Health Concerns Assessment Noted Time PHQ-9 Depression Total Score: 8 01/09/20 12:17 PM EST documented as of this encounter Care Teams Table Inspector Relationship Specialty Start Date End Date Sandra Avila MD [address] [place] [address] PCP - General Family Medicine 08/14/25 Judy Porras NP Nurse Practitioner Neurology 05/01/25 documented as of this encounter
--- OUTSIDE RECORDS SUMMARY | 2025-08-14 11:32 | XMS_ITS | Encounter Summary ---
Author Organization [employer] Address [address] 7t [place] [address] Care Team Providers Care Buyer Assistant Name Role Phone Barbie Hart Primary Care Provider [phone] Sundeep Arambula RN Unavailable [phone] Sandra Avila MD Primary Care Provider [phone] Encounter Details Date Type Department Care Team (Late st Contact Info) Description 07/10/2023 Abstract [facility] ADULT DENTAL [address], [place] [phone] Alma Ying [address], [place] [phone] Social History Tobacco Use Types Packs/Day Years [...] place to sleep or slept in a senior care (including now)? No 11/17/2022 Alcohol Answer Date [...] Description 09/29/2025 10:45 AM EST Office Visit [facility] CHC MED & PEDS [address] [place] [address] Urvashi Bolton MD [address] [place], [place] [phone] 11/11/2025 11:30 AM EST Office Visit [facility] OPTOMETRY [address] [place] [address] SamsonZina scott, OD [address] [place] [address] documented as of this encounter Visit Diagnoses Not on filedocumented in this encounter Additional Health Concerns Assessment Noted Time PHQ-9 Depression Total Score: 14 022 2:06 PM EST documented as of this encounter Care Teams Buyer Assistant Relationship Specialty Start Date End Date Barbie Hart ANP [address] [place] [address] PCP - General Family Medicine 01/25/23 08/13/25 Sandra Avila MD [address] [place] [address] PCP - General Family Medicine 08/14/25 Sundeep Arambula, SHALOM [address] [place] [address] Motion Picture Film ExaminerCherry Picker Operator 11/27/24 02/24/25 Judy Porras NP Nurse Practitioner Neurology 05/01/25 documented as of this encounter
[2025-08-14 14:36] LABS: MANUAL DIFF FLAG NO
[2025-08-14 14:48] LABS: Hematocrit 40.4 % (37.0-47.0); Hemoglobin 13.9 g/dl (12.0-16.0); Imm Gran Abs Auto 0.06 X10*3/uL (0.00-0.03); Imm Gran Pct Auto 0.4 % (0.0-0.4); Lymphocytes Absolute Auto 4.8 X10*3/uL (1.2-4.9); Mean Corpuscular HGB Conc 34.4 g/dl (31.0-35.0); Mean Corpuscular Hemoglobin 31.2 pg (27.0-33.0); Mean Corpuscular Volume 90.8 fL (80.0-98.0); NRBC Abs Auto 0.000 X10*3/uL (0.0-0.012); NRBC Pct Auto 0.0 /100WBC (0.0-0.2); Platelet Count 397 X10*3/uL (160-400); Red Blood Count 4.45 X10*6/uL (4.20-5.50); White Blood Count 15.1 X10*3/uL (4.8-10.8)
[2025-08-14 15:00] LABS: Alanine Aminotransferase 29 U/L (0-31); Albumin Level 4.4 g/dL (3.5-5.0); Alkaline Phosphatase 107 U/L (39-117); Anion Gap 11 (12-20); Aspartate Amino Transferase 22 U/L (5-31); Blood Urea Nitrogen 13 mg/dL (9-16); Calcium 9.1 mg/dL (8.4-10.2); Carbon Dioxide 27 mmol/L (22-29); Chloride 107 mmol/L (96-108); Cholesterol 196 mg/dL (<200); Estimated Glomerular Filt Rate > 60; HDL Cholesterol 49 mg/dL (>40); Potassium 3.7 mmol/L (3.3-5.1); Sodium 141 mmol/L (135-145); Total Protein 7.6 g/dL (6.5-8.0); Triglycerides 91 mg/dL (<150)
[2025-08-14 18:29] LABS: Microalbum/Creatinine Ratio Ur 4.2 ug/mg cr (<30)
[2025-08-15 09:12] LABS: HBS Num1 > 1000.00 mIU/mL (0-7.99); HBc Num1 0.09 S/CO (0.00-0.79); HBsAGNum1 0.40 S/CO (0.00-0.99); HIV Num 1 0.05 S/CO (0.00-0.99); Hepatitis B Surface Antigen Negative (Negative); ~HepC Num1 0.11 S/CO (0.00-0.79); ~Hepatitis B Surface Antibody REACTIVE (Nonreactive); ~Hepatitis C Antibody Nonreactive (Nonreactive)
[2025-08-18 13:18] LABS: TS Negative Control Passed; TS Panel A 0; TS Panel B 0; TS Positive Control Passed; TSpotTB Negative (Negative)
== END 2025-08-14 10:52 | disposition home or self-care (01) ==
LOC: HO.CHCLDS 10:51
PROVIDERS: Visit Provider Family Medicine
DX: Z11.1 Encounter for screening for respiratory tuberculosis (principal); Z11.4 Encounter for screening for human immunodeficiency virus [HIV]; Z11.59 Encounter for screening for other viral diseases; E66.812 Obesity, class 2
CPT/HCPCS: 36415; 80053; 80061; 82043; 82570; 84443; 85025; 86481; 86704; 86706; 86803; 87340; 87389

== ENCOUNTER 2025-10-01 11:07 | Outpatient (REF) | payer MEDICAID, SELFPAY ==
--- OUTSIDE RECORDS SUMMARY | 2025-09-28 09:30 | XMS_ITS | Encounter Summary ---
Author Organization [employer] Address [address] [facility] 7 [place] [address] Care Team Providers Care Ecological Technical Officer Name Role Phone Sandra Avila MD Primary Care Provider [phone] Encounter Details Date Type Department Care Team (Late st Contact Info) Description 09/28/2025 9:30 AM EST Office Visit [facility] OPTOMETRY [address] [place], [place] [phone] Samson, Zina, OD [address] [place] [address] Myopia of both eyes (Primary Dx) Social History Tobacco Use Types Packs/Day Years [...] PM EDT documented as of this encounter Progress Notes * Zina Davies, OD - 09/28/2025 9:30 AM EST MH glasses were dispensed. documented in this encounter Plan of Treatment Upcoming Encounters Date Type Department Care Team (Late st Contact Info) Description 10/30/2025 10:00 AM EST Office Visit [facility] CHC MED & PEDS [address] [place], [place] [phone] Mirela Beard MD [address] [place], [place] [phone] 11/11/2025 11:30 AM EST Office Visit [facility] OPTOMETRY [address] [place], [place] [phone] Zina Davies, OD [address] [place] [address] documented as of this encounter Visit Diagnoses Diagnosis Myopia of both eyes- Primary documented in this encounter Additional Health Concerns Assessment Noted Time PHQ-9 Depression Total Score: 8 01/09/20 25 12:17 PM EST documented as of this encounter Care Teams Ecological Technical Officer Relationship Specialty Start Date End Date Sandra Avila MD [address] [place] [address] PCP - General Family Medicine 08/14/25 Judy Porras NP Nurse Practitioner Neurology 05/01/25 documented as of this encounter
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
--- OUTSIDE RECORDS SUMMARY | 2025-10-01 13:47 | XMS_ITS | Encounter Summary ---
Author Organization [employer] Address [address] [facility] 7t [place] [address] Care Team Providers Care Member Certification Manager Name Role Phone Sandra Avila MD Primary Care Provider [phone] Encounter Details Date Type Department Care Team (Latest Contact Info) Description 09/03/2025 Results Follow-Up [facility] CHC MED & PEDS [address] [place], [place] [phone] Sandra Avila MD [address] [place] [address] CBC auto differential, Comprehensive Metabolic Panel, TSH W/Reflex to FT4, Additional followed-up results: 7 Social History Tobacco Use Types Packs/Day Years [...] Description 10/30/2025 10:00 AM EST Office Visit [facility] CHC MED & PEDS [address] [place] [address] Mirela Beard MD [address] [place] [address] 11/11/2025 11:30 AM EST Office Visit [facility] OPTOMETRY [address] [place] [address] Zina Davies, OD [address] [place] [address] documented as of this encounter Visit Diagnoses Not on filedocumented in this encounter Additional Health Concerns Assessment Noted Time PHQ-9 Depression Total Score: 8 01/09/20 12:17 PM EST documented as of this encounter Care Teams Member Certification Manager Relationship Specialty Start Date End Date Sandra Avila MD [address] [place] [address] PCP - General Family Medicine 08/14/25 Judy Porras NP Nurse Practitioner Neurology 05/01/25 documented as of this encounter
--- OUTSIDE RECORDS SUMMARY | 2025-10-01 13:47 | XMS_ITS | Encounter Summary ---
Author Organization [employer] Address [address] [facility] [address] 7t [place] [address] Care Team Providers Care Residential Care Facility Manager Name Role Phone Sandra Avila MD Primary Care Provider [phone] Encounter Details Date Type Department Care Team (Latest Contact Info) Description 09/28/2025 Travel Social History Tobacco Use Types Packs/Day [...] Upcoming Encounters Date Type Department Care Team ([facility] st Contact Info) Description 10/30/2025 10:00 AM EST Office Visit [facility] CHC MED & PEDS [address] [place] [address] Mirela Beard MD [address] [place] [address] 11/11/2025 11:30 AM EST Office Visit [facility] OPTOMETRY [address] [place] [address] Samson Zina, OD [address] [place] [address] documented as of this encounter Visit Diagnoses Not on filedocumented in this encounter Additional Health Concerns Assessment Noted Time PHQ-9 Depression Total Score: 8 01/09/20 12:17 PM EST documented as of this encounter Care Teams Residential Care Facility Manager Relationship Specialty Start Date End Date Sandra Avila MD [address] [place] [address] PCP - General Family Medicine 08/14/25 Judy Porras NP Nurse Practitioner Neurology 05/01/25 documented as of this encounter
--- OUTSIDE RECORDS SUMMARY | 2025-10-01 13:47 | XMS_ITS | Encounter Summary ---
Author Organization [employer] Address [address] [facility] [address] [place] [address] Care Team Providers Care Maintenance Supervisor Electrical Name Role Phone Barbie Hart Primary Care Provider [phone] Sundeep Arambula RN Unavailable [phone] Sandra Avila MD Primary Care Provider [phone] Encounter Details Date Type Department Care Team (Late st Contact Info) Description 07/10/2023 Abstract [facility] ADULT DENTAL [address] [place], [place] [phone] Alma Ying [address] [place], [place] [phone] Social History Tobacco Use Types Packs/Day Years [...] place to sleep or slept in a assisted (including now)? No 11/17/2022 Alcohol Answer Date [...] Description 10/30/2025 10:00 AM EST Office Visit [facility] CHC MED & PEDS [address] [place] [address] Mirela Beard MD [address] [place], [place] [phone] 11/11/2025 11:30 AM EST Office Visit [facility] OPTOMETRY [address] [place] [address] Zina Davies, OD [address] [place] [address] documented as of this encounter Visit Diagnoses Not on filedocumented in this encounter Additional Health Concerns Assessment Noted Time PHQ-9 Depression Total Score: 14 022 2:06 PM EST documented as of this encounter Care Teams Maintenance Supervisor Electrical Relationship Specialty Start Date End Date Barbie Hart ANP [address] [place] [address] PCP - General Family Medicine 01/25/23 08/13/25 Sandra Avila MD [address] [place] [address] PCP - General Family Medicine 08/14/25 Sundeep Arambula, SHALOM [address] [place] [address] Senior Bioinformatics SpecialistGrinder Machine Setter 11/27/24 02/24/25 Judy Porras NP Nurse Practitioner Neurology 05/01/25 documented as of this encounter
--- OUTSIDE RECORDS SUMMARY | 2025-10-01 13:47 | XMS_ITS | Clinical Summary ---
Author Organization [facility] [address] [address] Phone Care Team Providers Care Radio Control Crane Operator Name Role Phone Cande Viera APRN Primary Care Provider Allergies Active [...] C screening 2008 Cervical cancer screening 2011 Influenza vaccine 06/26/2025 11/17/2022, 09/22/2016 Covid-19 vaccine series ( season) 2025 Tetanus adult (Td q 10,TDAP once) 12/22/2026 [...] age to complete this topic Insurance [address] [place], [place] [id number] [place] [address] [place] [address] [place] [address] [place] [address] [place] Care Teams Radio Control Crane Operator Relationship Specialty Start Date End Date Cande Viera, INSPECTING ENGINEER [address] [place] [address] [place] [phone] PCP - General 06/25/19
--- OUTSIDE RECORDS SUMMARY | 2025-10-01 13:47 | XMS_ITS | Encounter Summary ---
Author Organization [employer] Address [address] [place] [address] Care Team Providers Care Stucco Plasterer Name Role Phone Sandra Avila MD Primary Care Provider [phone] Encounter Details Date Type Department Care Team (Latest Contact Info) Description 09/29/2025 Travel Social History Tobacco Use Types Packs/Day [...] Upcoming Encounters Date Type Department Care Team ([facility] st Contact Info) Description 10/30/2025 10:00 AM EST Office Visit [facility] CHC MED & PEDS [address] [place] [address] Mirela Beard MD [address] [place] [address] 11/11/2025 11:30 AM EST Office Visit [facility] OPTOMETRY [address] [place] [address] Samson Zina, OD [address] [place] [address] documented as of this encounter Visit Diagnoses Not on filedocumented in this encounter Additional Health Concerns Assessment Noted Time PHQ-9 Depression Total Score: 8 01/09/20 12:17 PM EST documented as of this encounter Care Teams Stucco Plasterer Relationship Specialty Start Date End Date Sandra Avila MD [address] [place] [address] PCP - General Family Medicine 08/14/25 Judy Porras NP Nurse Practitioner Neurology 05/01/25 documented as of this encounter
--- OUTSIDE RECORDS SUMMARY | 2025-10-01 13:47 | XMS_ITS | Data Portability ---
Author Organization [place] - [facility], Allergy Address [address] [facility] [address] [place] [address] Assessment Encounter Date Assessment Date Assessment LastModified by Organization Details LastModified Time 09/17/2025 09/17/2025 34-year-old female presents for evaluation of chronic postnasal drip, dry cough, and phlegm in the throat. Fiberoptic laryngoscopy demonstrated septal deviation to the left and moderate mucoid rhinorrhea bilaterally. No obvious mass or lesion was noted. No palpable cervical lymphadenopathy. Recommended CT sinus for further evaluation. Also recommended trial of Flonase nasal spray once daily. Also recommended food and environmental allergy testing and referral to allergy and immunology was placed. She will follow-up to review CT sinus. CT neck with contrast may be considered in the future to rule out underlying pathology if she continues to have persistent symptoms. Patient agrees with the plan and all questions were answered. marco Not available 09/17/2025 10:48:08 Plan of Treatment Reminders Order Date Submit Date Provider Last Modified By Organization Details Last Modified Time Details Appointments None recorded. Lab None recorded. Referral personal banking officer & immunologi st referral - food and environmen tigist allergy testing 2024 025 ATHE[facility]X [facility], [address] [facility], [place], [address], 12:37:19 Procedures None recorded. Surgeries None recorded. Imaging CT, sinuses, w/o contrast 2024 025 [email or web address] [facility], [address] [facility], [address], [place], [address], 09:28:47 Medication Orders Flonase Allergy Relief 50 mcg/actuat ion nasal spray,susp ension 2024 025 [facility]/Pharmacy #[id number], [phone] [place], [address], 10:41:46 Patient TargetsNo targets recorded. Patient InstructionsNo instructions recorded. Reason for Referral Senior Administrative Services Officer & Youth Support Worker Ref erral for Posterior rhinorrhea food and environmental allergy testing Referring Physician: Laurie Coy, Otolaryngology, Encounter Date: 09/17/2025 Results Created Date Observation Date Name Description Value Unit Range Abnormal Flag Note LastModifiedBy Organization Detail LastModifiedTime 04/21/2006/20/2024 audio gram No observ ation record ed. [email or web address] Not Available 03/27 14:19:03 04/21/20 audio gram No observ ation record ed. BARCODE Not Available 2024 15:45:56 04/22/20 25 11/05/2024 MRI, brain , w/wo contr ast No observ ation record ed. [email or web address] Not Available 03/27 09:12:15 Result Notes None recorded. Problems Name Problem SNOMED Code Status Onset Date Resolution Date Notes Provider Name and Address Organization Details Recorded Time Abnormal auditory perception 24252032 Active 2024 REMEDIOS ANGULO [address] [place] [address], [address], [facility] - [facility] 13:32:55 Sensorineural hearing loss of left ear with normal hearing on right side 3776519747 Active 2024 REMEDIOS ANGULO [address] [place] [address], [address], [facility] - [facility] 13:36:31 Allergic rhinitis 64124891 Active 2024 LAURIE COY PA-C [address] [place], [address], [facility] - [facility] [place] 10:34:27 Posterior rhinorrhea 50826700 Active 2024 LAURIE COY PA-C [address] [facility], [place], [address], [facility] - [facility] [place] 10:34:33 Chronic sinusitis 19010290 Active [address]24 LAURIE COY PA-C [address] [facility] [address], [place], [address], [place] - [facility] [place] 10:36:37 Nasal congestion 01691243 Active 2024 LAURIE COY PA-C [address] [facility],[address] [address], [place], [address], [facility] - [facility] [place] 10:36:44 Problem Notes None recorded. Procedures Surgical History Date Name Laterality Status Provider Name and Address Organization Details Recorded Time FOL_DP completed LAURIE COY PA-C [address] [place] [address], [address], [facility] - [facility] 09/17/2025 10:40:47 Air & Speech Audio with Tymps - 33645, 12533 & 66102 completed KWAN VINES [facility] [address] [facility],[address], [address], [facility] - [facility] 04/21/2025 13:30:55 section completed Gera Kam [place] - [facility] [place] 04/21/2025 13:53:21 Imaging Results None recorded. Procedure Notes None recorded. Medical Equipment None Reported. Allergies Allergen ID Allergen Name Allergen Category Reaction Reaction Severity Criticality Documentation Date Start Date Code Code System Note Provider Name and Address Organization Details Recorded Time 133805 crab allergeni c extract food Not available Not available Not available 09/17/2025 46472 0 RxNorm LAURIE COY PA-C [address] [facility], [address], [place], [address], [facility] - [facility] 10:37:40 676678 peanut allergeni c extract food,medi cation Not available Not available Not available 09/17/2025 46442 8 RxNorm LAURIE COY PA-C [address] [address], [place], [address], [facility] 10:37:44 Medications Name Sig Start Date Stop Date Status Note LastModified by Organization Details LastModified Time ketoconazol e 2 % shampoo USE SHAMPOO 2-3 TIMES PER WEEK active Not Available Not Available No t Available trazodone 50 mg tablet TAKE 1 AND 1/2 TABLETS (75 MG) BY MOUTH AT BEDTIME active Not Available Not Available No t Available cetirizine 10 mg tablet TAKE 1 TABLET (10 MG) BY MOUTH ONCE PER DAY. active Not Available Not Available No t Available nicotine (polacrilex ) 2 mg gum CHEW 1 EACH (2 MG) IF NEEDED FOR SMOKING CESSATION . active Not Available Not Available No t Available prednisone 20 mg tablet TAKE 2 TABLET BY MOUTH ONCE A DAY WITH MEALS X 5 DAYS 09/17 completed Not Available Not Available Not Available topiramate 25 mg tablet TAKE 1 TABLET BY MOUTH AT BEDTIME active Not Available Not Available No t Available sertraline 25 mg tablet TAKE 1 TABLET BY MOUTH DAILY active Not Available Not Available No t Available epinephrine 0.3 mg/0.3 mL injection, auto-inject or USE DIRECTED FOR ALLERGIC REACTION AND THEN CALL 911 active Not Available Not Available No t Available albuterol sulfate HFA 90 mcg/actuati on aerosol inhaler INHALE 2 PUFFS BY MOUTH EVERY 4 HOURS NEEDED FOR WHEEZING OR SHORTNESS OF BREATH active Not Available Not Available No t Available escitalopra m 5 mg tablet TAKE 1 TABLET (5 MG) BY MOUTH ONCE PER DAY. active Not Available Not Available No t Available Flonase Allergy Relief 50 mcg/actuati on nasal spray,suspe nsion [place] 2 sprays into each nostril once daily x 30 days 2024 active Not Available Not Available Not Avai lable Omron Blood Pressure Monitor-3 Series kit USE TO CHECK BLOOD PRESSURE TWICE DAILY DIRECTED active Not Available Not Available No t Available Vitals Date Recorded Body height Body mass index (BMI) Body weight Provider Name and Address Organization Details Last Updated DateTime 04/21/2025 157.48 cm 35.1 kg/m2 08521.74 g Gera Kam [place] - [facility] 04/21/2025 13:51:52 Social History Question Answer Notes LastModified by Organizat ion Details LastModified Time Tobacco Smoking Status Current Every Day Smoker Gera karu [facility] 04/21/2025 13:53:08 How Many Years Have You Consumed Alcohol? 14 [email or web address] Information not available 09/17/2025 What Type Of Nail Maker Do You Use? None [email or web address] Information not available 09/17/2025 How Many Alcoholic Drinks Do You Consume Per Day On Average? 0 [email or web address] Information not available 09/17/2025 What Is Your Current Pack Years? 10-19packyear s [email or web address] Information not available 09/17/2025 Do You Have Any Pets? Yes [email or web address] Information not available 09/17/2025 At What Age Did You Start Smoking Tobacco? 16 [email or web address] Information not available 09/17/2025 Are You Passively Exposed To Smoke? No [email or web address] Information not available 09/17/2025 Are There Any Smokers In Your House? Yes Information not available 09/17/2025 How Much Tobacco Do You Smoke? 1 PPW [email or web address] Information not available 09/17/2025 How Many Years Have You Smoked Tobacco? 14 [email or web address] Information not available 09/17/2025 Sex: Unknown Functional Status Question Answer Note LastModified by Organizat ion Details LastModified Time How many times per week do you consume alcohol? Less than 1 time per week [email or web address] Information not available 09/17/2025 Do you use any illicit or recreational drugs? No [email or web address] Information not available 09/17/2025 Do you or have you ever used any other forms of tobacco or nicotine? No [email or web address] Information not available 09/17/2025 What is your level of alcohol consumption? Occasional [email or web address] Information not available 09/17/2025 What type of noise exposure are you exposed to? Firearms [email or web address] Information not available 09/17/2025 Mental Status None recorded. Family History Nothing Reported. Medical History Condition Response Allergies/Hayfever Y Heart Problems N Anxiety Y Tonsil Infections N Emphysema N Migraines N Thyroid Problems N Developmental Delay N COPD N Depression N Glaucoma N Nasal or Sinus Problems Y Anemia N Immune System Disorder N Anesthesia Complications N Heart Attack ([place]) N Other Skin Condition N Diabetes N Rhinitis N Bleeding Disorder N Food Allergy Y Arthritis N Hearing Loss Y Hyperlipidemia N Cancer N Stroke N Dementia N Nasal polyps N Asthma Y High Cholesterol N Sleep Disorder Y GERD/Reflux N Liver Disease N Headaches Y Fibromyalgia N Hypertension N Speech Delay N Kidney Disease N Gynecological HistoryNo gynecological history recorded. Obstetrics History GPAL:G 0 P 0 0 0 0 Past Encounters Encounter ID Performer Location Encounter Start Date Encounter Closed Date Diagnosis/Indication Diagnosis SNOMED-CT Code Diagnosis ICD10 Code Diagnosis IMO Codes Diagnosis Note [id number] SURAJ GONZALEZ MD [facility] of [address] [place] [address] 04/21/2025 13:15:35 04/21/2025 14:10:23 Abnormal auditory perception 31022815 H93.299 [id number] Right Ear:Normal hearing except for a mild SNHL at 2, 4 & 6 K Hz only with excellent speech discrimina tion.Type Ad tympanogra m.Left Ear:Normal hearing with excellent speech discrimina tion.Type Ad tympanogra m. Sensorineu ral hearing loss of left ear with normal hearing on right side 8490794889 H90.42 [id number] Right Ear:Normal hearing except for a mild SNHL at 2, 4 & 6 K Hz only with excellent speech discrimina tion.Type Ad tympanogra m.Left Ear:Normal hearing with excellent speech discrimina tion.Type Ad tympanogra m. I reviewed her audiograms . Given the asymmetry and her reported progressio n I reviewed her MRI brain with contrast from [facility] which per the report and my review was negative for retrocochl ear pathology but did show possible demyelinat ing disease. I recommend she f/u with neurology. I gave medical [place]. [id number] LAURIE COY PA-C [facility] of [address] [address] 09/17/2025 08:52:04 09/17/2025 09:54:22 Posterior rhinorrhea 10152494 R09.82 810911 Chronic sinusitis 431504 00 J32.8 07454 Nasal congestion 9538607 0 R09.81 72570 Health Concerns Section Related Observation LastModified by Organization Detai ls LastModified Time None Recorded Concern Status LastModified by Organization Details LastModified Time None Recorded Advance Directives Directive None Recorded Payers Insurance Date Sequence Insurance Name Policy Number Policy Romero Covered Member ID Romero Member ID Guarantor Name 08/25/2025 1 [place] [facility] Martha Cruz [id number] Martha Cruz 09/17/2025 1 [facility] INDEMNITY PLAN (PPO) [id number] Martha Cruz [id number] Martha Cruz 08/25/2025 1 [facility] INDEMNITY PLAN (INDEMNITY) [id number] Martha Cruz [id number] Martha Cruz Notes Date Note Type Note Provider Name and Address Organization Details Recorded Time 04/21/2025 text/html ROS as noted in the HPI Hx of asymmetric HL. Had an audio 05/2024 at [place] which showed mild HF SNHL AD. We repeated an audio today which showed stable mild hearing loss AD. She reports when she was 8 years old she had a trauma to her ear and since then she has felt she hears worse AD. She thinks this has progressed over the last year which promted the audio at [place].. Denies tinnitus. Hx of ocular migraine as well. SURAJ GONZALEZ MD [address] [place] [address], [address], [facility] - [facility] 04/21/2025 14:09:06 09/17/2025 text/html ROS as noted in the HPI 34-year-old female presents for evaluation of postnasal drip. Feels phlegm in throat and dry cough, worse on left side of throat. Denies allergy history or testing. Denies voice changes, hemoptysis, sore throat, dysphagia, and otalgia. Has tried antihistamines, but no nasal sprays. Denies history of GERD. History of asthma and food allergies. Has an EpiPen. Reports rashes when in the sun and is waiting for dermatology evaluation. She is a smoker. Reports chronic sinus infections, 2 per year that resolve with antibiotics. History of asymmetric hearing loss with MRI negative for retrocochlear pathology. Was cleared for right sided hearing aid back in March. She is considering amplification. SURAJ GONZALEZ MD [address] [place] [address], [address], [facility] - [facility] 09/17/2025 13:04:33 OBGyn Episode No OBEpisode recorded.
--- OUTSIDE RECORDS SUMMARY | 2025-10-01 13:47 | XMS_ITS | Continuity of Care Document ---
Author Organization [facility] - [facility], [facility] Address [address] [place] [address] Assessment Encounter Date Assessment Date Assessment LastModified [...] the plan and all questions were answered. [email or web address] Not available 09/17/2025 10:48:08 Plan of Treatment Reminders Order Date Submit Date Provider Last Modified By Organization Details Last Modified Time Details Appointments None recorded. Lab None recorded. Referral car audio installer & immunologi st referral - food and environmen tigist allergy testing 2024 025 [facility], [address] [facility], [place], [address], 12:37:19 Procedures None recorded. Surgeries None recorded. Imaging CT, sinuses, w/o contrast 2024 025 [email or web address] [facility], [address] [place] [address], [address], [place], [address], 09:28:47 Medication Orders Flonase Allergy Relief 50 mcg/actuat ion nasal spray,susp ension 2024 025 [facility]/Pharmacy #[id number], [phone] [place], [address], 10:41:46 Patient TargetsNo targets recorded. Patient InstructionsNo instructions recorded. Reason for Referral Conservation Engineer & Brick Grader Ref erral for Posterior rhinorrhea food and environmental allergy testing Referring Physician: Laurie Coy, Otolaryngology, Encounter Date: 09/17/2025 Problems Name Problem SNOMED Code Status Onset Date Resolution Date Notes Provider Name and Address Organization Details Recorded Time Abnormal auditory perception 88421506 Active 2024 KWAN VINES AUD [address] [address], [place], [address], [facility] - [facility] [place] 13:32:55 Sensorineural hearing loss of left ear with normal hearing on right side 5806789667 Active 2024 KWAN VINES, AUD [address] [place] [address], [place], [address], [facility] - [facility] [place] 13:36:31 Allergic rhinitis 96179653 Active 2024 LAURIE COY PA-C [address] [address], [place], [address], [facility] - [facility] [place] 10:34:27 Posterior rhinorrhea 22304143 Active 2024 LAURIE COY PA-C [address] [address], [place], [address], [facility] - [facility] [place] 10:34:33 Chronic sinusitis 70817029 Active 2024 LAURIE COY PA-C [address] [address], [place], [address], [facility] - [facility] 10:36:37 Nasal congestion 06995317 Active 2024 LAURIE COY PA-C [address] [facility],[address], [address], [facility] - [facility] 10:36:44 Problem Notes None recorded. Procedures Surgical History Date Name Laterality Status Provider Name and Address Organization Details Recorded Time FOL_DP completed LAURIE COY PA-C [address] [place] [address],[address], [address], [facility] - [facility] 09/17/2025 10:40:47 Air & Speech Audio with Tymps - 04018, [address]86[address] & 28867 completed KWAN VINES [facility] [address] [facility],[address] [address], [place], [address], [facility] - [facility] [place] 04/21/2025 13:30:55 section completed Gera Kam [place] - [facility] [place] 04/21/2025 13:53:21 Imaging Results None recorded. Procedure Notes None recorded. Medical Equipment None Reported. Allergies Allergen ID Allergen Name Allergen Category Reaction Reaction Severity Criticality Documentation Date Start Date Code Code System Note Provider Name and Address Organization Details Recorded Time 541882 crab allergeni c extract food Not available Not available Not available 09/17/2025 41283 0 RxNorm LAURIE COY PA-C [address] [place] [address], [address], [facility] - [facility] 10:37:40 783581 peanut allergeni c extract food,medi cation Not available Not available Not available 09/17/2025 41005 8 RxNorm LAURIE COY PA-C [address], [address], [facility] - [facility] 10:37:44 Medications Name Sig Start Date Stop [...] Relief 50 mcg/actuati on nasal spray,suspe nsion [place] 2 sprays into each nostril once daily x 30 days 2024 active Not Available Not Available Not Avai lable Omron Blood Pressure Monitor-3 Series kit USE TO CHECK BLOOD PRESSURE TWICE DAILY DIRECTED active Not Available Not Available No t Available Vitals None Recorded Social History Question Answer Notes LastModified by Organizat ion Details LastModified Time Tobacco Smoking Status Current Every Day Smoker Gera kaur [place] - [facility] 04/21/2025 13:53:08 How Many Years Have You Consumed Alcohol? 14 [email or web address] Information not available 09/17/2025 What Type Of Shift Mechanic Do You Use? None [email or web address] Information not available 09/17/2025 How Many Alcoholic Drinks Do You Consume Per Day On Average? 0 [email or web address] Information not available 09/17/2025 What Is Your Current Pack Years? 10-19packyear s [email or web address] Information not available 09/17/2025 Do You Have Any Pets? Yes [email or web address] Information not available 09/17/2025 At What Age Did You Start Smoking Tobacco? 16 Information not available 09/17/2025 Are You Passively Exposed To Smoke? No [email or web address] Information not available 09/17/2025 Are There Any Smokers In Your House? Yes [email or web address] Information not available 09/17/2025 How Much Tobacco Do You Smoke? 1 PPW [email or web address] Information not available 09/17/2025 How Many Years Have You Smoked Tobacco? 14 [email or web address] Information not available 09/17/2025 Sex: Unknown Functional Status Question Answer Note LastModified by Organizat ion Details LastModified Time How many times per week do you consume alcohol? Less than 1 time per week [email or web address] Information not available 09/17/2025 Do you use any illicit or recreational drugs? No [email or web address] Information not available 09/17/2025 Do you or have you ever used any other forms of tobacco or nicotine? No [email or web address] Information not available 09/17/2025 What is your level of alcohol consumption? Occasional [email or web address] Information not available 09/17/2025 What type of noise exposure are you exposed to? Firearms [email or web address] Information not available 09/17/2025 Mental Status None recorded. Family History Nothing Reported. Medical History Condition Response Allergies/Hayfever Y Heart Problems N Anxiety Y Tonsil Infections N Emphysema N Migraines N Thyroid Problems N Glaucoma N Depression N COPD N Developmental Delay N Nasal or Sinus Problems Y Anemia N Immune System Disorder N Anesthesia Complications N Heart Attack ([place]) N Other Skin Condition N Diabetes N [...] ICD10 Code Diagnosis IMO Codes Diagnosis Note [id number] LAURIE COY PA-C [facility] [address] [place] [address] 09/17/2025 08:52:04 09/17/2025 09:54:22 Posterior rhinorrhea 96835051 R09.82 544786 Chronic sinusitis 749298 00 J32.8 81868 Nasal congestion 1771326 0 R09.81 20359 Health Concerns Section Related Observation LastModified by Organization Detai ls LastModified Time None Recorded Concern Status LastModified by Organization Details LastModified Time None Recorded Payers Encounter Date Sequence Insurance Name Policy Number Policy Romero Covered Member ID Romero Member ID Guarantor Name 09/17/2025 1 [employer] [facility] INDEMNITY PLAN (PPO) [id number] 5 Martha Cruz [id number] Martha Cruz Notes Date Note Type Note Provider Name and Address Organization Details Recorded Time 09/17/2025 text/html ROS as noted in the [...] She is considering amplification. SURAJ GONZALEZ MD [address] [place] [address],[address], [address], [facility] - [facility] 09/17/2025 13:04:33 OBGyn Episode No OBEpisode recorded.
--- OUTSIDE RECORDS SUMMARY | 2025-10-01 13:48 | XMS_ITS | Clinical Summary ---
Author Organization [facility] Address [address] [place] [address] Care Team Providers Care Plant Protection Supervisor Name Role Phone Unavailable Primary Care Provider Unavailabl e Source Comments PLEASE NOTE, if this patient is a minor, it may be UNLAWFUL to discuss sensitive information that is contained in these records (such as FAMILY PLANNING, MENTAL HEALTH or SUBSTANCE ABUSE) with the minor patient's parent or other person without the patient's specific authorization.[facility] Social History Tobacco Use Types Packs/Day Years Used Date Smoking Tobacco: Never Assessed Comments Unknown Sex and Gender Information Value Date Recorded Sex Assigned at Female 05/11/2025 10:09 AM PDT Legal Sex Female 10:08 AM PDT Gender Identity Female 05/11/2025 10:09 AM PDT Sexual Orientation Not on file Plan of Treatment Health Maintenance Due Date Last Done Comments Anxiety Screening 1990 HPV Screening (self-collect) 1990 HPV Screening 1990 Hepatitis C Screening 1990 Pap + HPV 1990 Tobacco Screening 1990 HIV Screening 2005 Relationship Safety Screening/Counseling 2005 Hypertension Screening (#1) 2008 Imm-Hepatitis B (1 of 3 - 19 + 3-dose series) 2009 Cervical Cancer Screening 2011 Pap Smear 2011 Imm-HPV (1 - 3-dose SCDM series) 2017 Alcohol and Drug Screen 11/26/2024 Depression Annual Screen 11/26/2024 [id number] ( season) 2025 Imm-Influenza (#1) 2025 11/17/2022, 09/22/2016 Imm-DTaP/Tdap/Td (2 - Td or Tdap) 12/22/2026 017 Cervical Ablation/Cold-Knife Conization Discontinued Cervical Cryotherapy Discontinued Colposcopy Discontinued Excision/Leep Discontinued HPV Genotyping Discontinued Vaginal Pap Discontinued Vulvoscopy Discontinued Insurance [facility]
--- OUTSIDE RECORDS SUMMARY | 2025-10-01 13:48 | XMS_ITS | Clinical Summary ---
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 Blood Pressure kitIndications:El evated blood pressure reading without diagnosis of hypertension 1 each 2 times daily. 1 kit 5 12/09/19 26 Active cetirizine (ZyrTEC) 10 MG tabletIndications :Solar dermatitis Take 1 tablet (10 mg) by mouth Once per day. 90 tablet 1 5 10/14/20 25 Active ketoconazole (NIZOral) 2 % shampooIndication s:Seborrheic dermatitis Use as shampoo 2-3 times per week 120 mL 11 5 Active escitalopram (Lexapro) 5 MG tabletIndications :Moderate episode of recurrent major depressive disorder (CMS/HCC) (HCC) Take 1 tablet (5 mg) by mouth Once per day. 30 tablet 1 5 Active EPINEPHrine (Epipen) 0.3 MG/0.3ML injection syringeIndication s:History of food allergy use as directed for allergic reaction and then call 911 1 each 11 5 Active traZODone (Desyrel) 50 MG tabletIndications :Moderate episode of recurrent major depressive disorder (CMS/HCC) (HCC) Take 1.5 tablets (75 mg) by mouth at bedtime. 45 tablet 1 5 10/13/20 25 Active topiramate (Topamax) 25 MG tablet Take 1 tablet (25 mg) by mouth at bedtime. 90 tablet 1 5 Active albuterol (Ventolin HFA) 108 (90 Base) MCG/ACT inhalerIndication s:Acute URI INHALE 2 PUFFS EVERY 4 HOURS NEEDED FOR WHEEZING OR SHORTNESS OF BREATH 18 g 5 Active Active Problems Problem Noted Date Diagnosed Date Mild intermittent asthma without complication Rash 08/14/2025 Abnormal auditory perception 04/21/2025 Sensorineural hearing loss ( SNHL) of left ear with unrestricted hearing of right ear 04/21/2025 Moderate episode of recurren t major depressive disorder (CMS/HCC) 12/03/2024 Assessment & Plan (01/15/2025 12:15 PM [...] of depressive symptoms. Pt was referred to [facility] for therapy services; pt reports currently feeling [...] per her medical chart. She moved from [place] to [place] two years ago. Current stressors increasing symptoms are family issues, her financial situation and her medical condition. Martha has no support in the area and feels isolated. Pt will start therapy services with external agency [employer] , she is scheduled for her first session next Sunday. Pt reports having excessive beer consumption when feeling under stress. She does not consider this is affecting her interpersonal relationships at this time. Educated patient with resources in the community and services provided by [facility] for alcohol dependence. clinician engaged [...] per her medical chart. She moved from [place] to [place] two years ago to stop complicated romantic [...] to engage in activities in her local buddhism and have the sense of belonging. clinician engaged patient with active/reflective listening. Reviewed and assessed for risk, current stressors and protective factors using open-ended questions. Provided information for [facility] / crisis line. Pt agreed to referral for OP individual therapy and psychiatry services. clinician will also provide additional support during next medical appointment on 12/09 to assess symptoms. Idiopathic intracranial hypertension 05/12/2024 Overview (08/14/2025): Pseudotumor cerebri Uncomplicated alcohol dependence (CMS/HCC) 06/08 Other somatoform disorders 06/08/2023 Depression, unspecified 06/08/2023 [...] cervix 11/02/2022 11/17/2022 Healthcare maintenance 11/02/202211/17 Encounters Date Type Department Care Team Description 09/29/2025 10:45 AM EST Office Visit [facility] [address] [place] [address] Urvashi Bolton MD Solar dermatitis (Primary Dx) 09/29/2025 Travel 09/28/2025 9:30 AM EST Office Visit [facility] [address] [place] [address] Samson, Zina, OD Myopia of both eyes (Primary Dx) 09/28/2025 Travel 09/03/2025 Results Follow-Up [facility] [address] [place] [address] Sandra Avila MD CBC auto differential, Comprehensive Metabolic Panel, TSH W/Reflex to FT4, Additional followed-up results: 7 08/19/2025 Telephone [facility] [address] [place] [address] [phone] Sandra Avila MD 08/14/2025 9:15 AM EDT Office Visit [facility] [address] [place] [address] Sandra Avila MD Patellofemoral disorder of left knee (Primary Dx); Idiopathic intracranial hypertension; History of food allergy; Moderate episode of recurrent major depressive disorder (CMS/HCC); Acute URI; Mild intermittent asthma without complication; Rash; Sensorineural hearing loss (SNHL) of left ear with unrestricted hearing of right ear; Class 2 obesity; Encounter for health-related screening; Tuberculosis screening; Encounter for immunization; Phlegm in throat 08/14/2025 Orders Only [facility] [address] [place] [address] Sandra Avila MD 08/14/2025 Travel 08/10/2025 Telephone [facility] [address] [place], [place] [phone] Sandra Avila MD chart prep 08/07/2025 10:00 AM EDT Office Visit [facility] [address] [place] [phone] Samson, Zina, OD Chronic nonintractable headache, unspecified headache type (Primary Dx) 08/07/2025 Patient Outreach [facility] [address] [place] [address] Becca Desir Pre-visit Planning (SDOH screening completed on 12/18/24 ) 08/07/2025 Travel 07/22/2025 9:00 AM EDT Office Visit [facility] [address] [place] [address] Samson, Zina, OD Chronic nonintractable headache, unspecified headache type (Primary Dx); 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 I have yary sing 12/18/[address] you li [...] Pulse 96 09/29/2025 10:45 AM EST Temperature 36.8 C (98.3 F) 08/14/2025 9:20 AM EDT Respiratory Rate 20 09/29/2025 10:45 AM EST Oxygen Saturation 98% 09/29/2025 10:45 AM EST Inhaled Oxygen Concentration - - Weight 85.3 kg (188 lb) 09/29/2025 10:45 AM EST Height 159 cm (5' 2.6 ) 09/29/2025 10:45 AM EST Body Mass Index 33.73 09/29/2025 10:45 AM EST Plan of Treatment Upcoming Encounters Date Type Department Care Team (Late st Contact Info) Description 10/30/2025 10:00 AM EST Office Visit [facility] [address] [place], [place] [phone] Mirela Beard MD [address] [place] [address] 11/11/2025 11:30 AM EST Office Visit [facility] [address] [place] [address] Zina Davies, OD [address] [place] [address] Health Maintenance Due Date Last Done Comments Family Planning (PISQ) 2005 HPV Vaccines (1 - 3-dose series) 2005 Hepatitis B Vaccines (1 of 3 - 19+ 3-dose series) 2009 Dental Oral Exam 12/06/2023 06/04/2023, 12/14/2016 Dental X-Ray: Bitewings 06/05/2024 06/04/20 23, 12/14/2016 Dental Prophylaxis 09/21/2024 03/21/2024, 06/21/2023 Disability Screening 12/04/2025 12/04/2024 SDOH Screening 12/18/2025 12/18/2024 Depression Screening 01/09/2026 01/09/2025, 01/09/2025 Alcohol/Substance Use Screening 04/17/2026 04/17/2025 Dental X-Ray: Full Mouth 06/05/2026 023, 12/14/2016 Tobacco Screening 09/29/2026 09/29/2025 DTaP/Tdap/Td Vaccines (2 - T d or Tdap) 12/22/2026 12/22/2016 Cervical Cancer Screening 09/17/2029 HPV/Cotest 09/17/2029 09/17/2024 Pap Smear 09/17/2029 09/17/2024 Lipid Panel 08/14/2030 08/14/2025, 09/15/2024 Zoster Vaccines (1 of 2) 2040 RSV Patients and Patients Aged 60 years or older (1 - 1-dose 75+ series) 2065 COVID-19 Vaccine Completed 07/09/2025 Influenza Vaccine Completed 07/09/2025, 11/17/2022, 09/22/2016 HIV Screening Completed 08/14/2025 Hepatitis C Screening Completed 08/14/2025 Pneumococcal Vaccine: Pediatrics (0 to 5 Years) [...] Procedure Name Priority Date/Time Associated Diagnosis Comments T-SPOT(R).TB Routine 08/14/2025 10:53 AM EDT Tuberculosis screening HEPATITIS B CORE AB TOTAL Routine 08/14/2025 10:53 AM EDT Encounter for health-related screening HEPATITIS B SURFACE ANTIGEN, EIA Routine 08/14/2025 10:53 AM EDT Encounter for health-related screening HEPATITIS B SURFACE ANTIBODY, QUALITATIVE Routine 08/14/2025 10:53 AM EDT Encounter for health-related screening HEPATITIS C AB W/REFL TO HCV RNA, QN, PCR Routine 08/14/2025 10:53 AM EDT Encounter for health-related screening HIV 1/2 ANTIGEN/ANTIBODY, FOURTH GENERATION W/RFL Routine 08/14/2025 10:53 AM EDT Encounter for health-related screening LIPID PANEL, STANDARD Routine 08/14/2025 10:53 AM EDT Class 2 obesity TSH W/REFLEX TO FT4 Routine 08/14/2025 1 0:53 AM EDT Class 2 obesity COMPREHENSIVE METABOLIC PANEL Routine 08/14/2025 10:53 AM EDT Class 2 obesity CBC WITH AUTO DIFFERENTIAL Routine 08/14/2025 10:53 AM EDT Class 2 obesity ALBUMIN, RANDOM URINE W/CREATININE Routine 08/14/2025 12:00 AM EDT AUTOMATED VISUAL FIELD, EXTENDED - OU - BOTH EYES Routine 08/07/2025 10:00 AM EDT Chronic nonintractable headache, unspecified headache type OCT, OPTIC NERVE - OU - BOTH EYES Routine 07/22/2025 11:47 AM EDT Chronic nonintractable headache, unspecified headache type THINPREP IMAGING PAP AND HPV MRNA E6/E7 Routine 09/17/2024 9:04 AM EDT Procreative management Full PROPHYLAXIS - ADULT Routine 03/21/2024 10:00 AM EDT Dental calculus Periodontal disease Localized gingival recession INTRAORAL - COMPLETE SERIES OF RADIOGRAPHIC IMAGES Routine 06/04/2023 1:00 PM EDT Periodontal disease COMPREHENSIVE ORAL EVALUATION - NEW OR ESTABLISHED PATIENT Routine 06/04/2023 1:00 PM EDT Periodontal disease from Last 3 Months or Most Recently Relevant to Health Maintenance Results * T-SPOT??.TB (08/14/2025 10:53 AM EDT) T Spot TB Negative Negative [facility] Comment:A negative test resu lt does not exclude the possibilityof exposure to or infection with Mycobacteriumtuberculosis (M. tuberculosis). Patients with recentexposure to TB infected individuals exhibiting anegative T-SPOT.TB result should be considered forretesting within 6 weeks or if other relevant clinicalsymptoms indicate. Results from T-SPOT.TB testing mustbe used in conjunction with each individual'sepidemiological history, current medical status,and results of other diagnostic evaluations.The T-SPOT.TB test is qualitative and results arereported as positive, borderline, or negative, giventhat the test controls perform as expected. In linewith the Centers for Disease Control and Prevention's2010 recommendation to report quantitative measurementsalongside the qualitative result, the laboratoryprovides spot counts for informational purposes only.The T-SPOT.TB test should not be interpreted as aquantitative test. TS PANEL A 0 [facility] TS PANEL B 0 [facility] Negative Control Passed [facility] Positive Control Passed [facility] Comment:For additional infor mation, please refer tohttp://education.Plan B Acqusitions/faq/NDD708(This link is being provided for informational/educational purposes only.)REPORT COMMENT:REC'D AT [facility] TEST WAS PERFORMED AT:[employer] [id number] [place] [id number] WINN MD,PHD 08/14/2025 10:5 3 AM EDT 08/14/2025 2:25 PM EDT us Sandra Avila MD LAB BLOOD ORDERABLES Final Re sult [facility] [address] [place] [phone] * TSH W/Reflex to FT4 (08/14/2025 10:53 AM EDT) TSH reflex Free T4 0.92 0.32 - 4.0 uIU/mL [facility] Blood Venous blood specimen / Unknown 08/14/2025 10:53 AM EDT 08/14/2025 2:25 PM EDT us Sandra Avila MD LAB BLOOD ORDERABLES Final Re sult [facility] [address] [place], [place] [phone] * (ABNORMAL) CBC auto differential (08/14/2025 10:53 AM EDT) White Blood Count 15.1(H) 4.8 - 10.8 X10*3/uL [facility] Red Blood Count 4.45 4.20 - 5.50 X10*6/uL [facility] Hemoglobin 13.9 12.0 - 16.0 g/dl [facility] Hematocrit 40.4 37.0 - 47.0 % [facility] Mean Corpuscular Volume 90.8 80.0 - 98.0 fL [facility] Mean Corpuscular Hemoglobin 31.2 27.0 - 33.0 pg [facility] Mean Corpuscular HGB Conc 34.4 31.0 - 35.0 g/dl [facility] Red Cell Distribution Width 13.0 11.0 - 16.0 % [facility] Platelet Count 397 160 - 400 X10*3/uL [facility] Mean Platelet Volume 11.7 9.4 - 12.3 fL [facility] Neutrophils Percent Auto 59.2 45 - 73 % [facility] Imm Gran Pct Auto 0.4 0.0 - 0.4 % [facility] Lymphocytes Percent Auto 31.8 20 - 40 % [facility] Monocytes Percent Auto 6.7 2 - 11 % [facility] Eosinophils Percent Auto 1.3 0 - 4 % [facility] Basophils Percent Auto 0.6 0 - 2 % [facility] NRBC Pct Auto 0.0 0.0 - 0.2 /100WBC [facility] Neutrophils Absolute Auto 9.0(H) 2.0 - 8.3 x10*3/uL [facility] Imm Gran Abs Auto 0.06(H) 0.00 - 0.03 X10*3/uL [facility] Lymphocytes Absolute Auto 4.8 1.2 - 4.9 X10*3/uL [facility] Monocytes Absolute Auto 1.0 0.1 - 1.2 X10*3/uL [facility] Eosinophils Absolute Auto 0.2 0.0 - 0.4 X10*3/uL [facility] Basophils Absolute Auto 0.1 0.0 - 0.2 X10*3/uL [facility] NRBC Abs Auto 0.000 0.0 - 0.012 X10*3/uL [facility] Blood Venous blood specimen / Unknown 08/14/2025 10:53 AM EDT 08/14/2025 2:25 PM EDT Sandra Avila MD LAB BLOOD ORDERABLES Final Re sult Performing Organization Address [facility] Co de Phone Number [facility] [address] [place] [phone] * Hepatitis C Antibody with Reflex to HCV, RNA, Quantitative, Real-Time PCR (08/14/2025 10:53 AM EDT) Hepatitis C Antibody Nonreactive Nonreactive [facility] Comment:Antibodies to HCV no t detected; does not exclude early acuteHCV infection. Blood Venous blood specimen / Unknown 08/14/2025 10:53 AM EDT 08/14/2025 2:25 PM EDT Sandra Avila MD LAB BLOOD ORDERABLES Final Re sult Performing Organization Address City/[facility]/ZIP Co de Phone Number [facility] [address] [place] [phone] * Hepatitis B surface antigen, EIA (08/14/2025 10:53 AM EDT) Hepatitis B Surface Ag Negative Negative [facility] Blood Venous blood specimen / Unknown 08/14/2025 10:53 AM EDT 08/14/2025 2:25 PM EDT Sandra Avila MD LAB BLOOD ORDERABLES Final Re sult Performing Organization Address City/[facility]/ZIP Co de Phone Number [facility] [address] [place] [phone] * Hepatitis B Core Antibody, Total (08/14/2025 10:53 AM EDT) Hepatitis B Core Antibody Nonreactive Nonreactive [facility] Blood Venous blood specimen / Unknown 08/14/2025 10:53 AM EDT 08/14/2025 2:25 PM EDT Sandra Avila MD LAB BLOOD ORDERABLES Final Re sult Performing Organization Address [facility] Co de Phone Number [facility] [address] [place] [phone] * HIV-1/2 Antigen and Antibodies, Fourth Generation, with Reflexes (08/14/2025 10:53 AM EDT) Pathologist [facility] HIV AB/AG Nonreactive Nonreactive [facility] Comment:HIV-1 p24 Ag and/or HIV-1/HIV-2 Ab not detected.A test result that is nonreactive does not exclude thepossibility of exposure to or infection with HIV-1 and/orHIV-2. Nonreactive results in this assay for individualswith prior exposure to HIV-1 and/or HIV-2 may be due toantigen and antibody levels that are below the limit ofdetection of this assay.The [employer] HIV Ag/Ab Combo assay result andsupplemental assay results should be interpreted inconjunction with the patient's clinical presentation,history and other laboratory results. If the results areinconsistent with clinical evidence, additional testing issuggested to confirm the result. Blood Venous blood specimen / Unknown 08/14/2025 10:53 AM EDT 08/14/2025 2:25 PM EDT Sandra Avila MD LAB BLOOD ORDERABLES Final Re sult Performing Organization Address [facility] de Phone Number [facility] [address] [place] [phone] * Hepatitis B Surface Antibody, Qualitative (08/14/2025 10:53 AM EDT) ~Hepatitis B Surface Antibody REACTIVE Nonreactive [facility] Comment:REACTIVE: > 11.99 mI U/mL Blood Venous blood specimen / Unknown 08/14/2025 10:53 AM EDT 08/14/2025 2:25 PM EDT Sandra Avila MD LAB BLOOD ORDERABLES Final Re sult Performing Organization Address [facility] de Phone Number [facility] [address] [place] [phone] * (ABNORMAL) Lipid Panel, Standard (08/14/2025 10:53 AM EDT) Triglycerides 91 <150 mg/dL [facility] Comment:Desirable Triglyceri de: less than 150 mg/dLBorderline High Triglyceride 150-199 mg/dLHigh Triglyceride: 200-499 mg/dLVery High Triglyceride: greater than or equal to 5OO mg/dL Cholesterol 196 <200 mg/dL [facility] Comment:Desirable Cholestero l: less than 200 mg/dLBorderline High Cholesterol: 200-239 mg/dLHigh Cholesterol: greater than 239 mg/dL LDL Cholesterol Calculated 129(H) <100 mg/dL [facility] Comment:Desirable LDL: less than 100 mg/dLNear Optimal/Above Optimal LDL: 110- 129 mg/dLBorderline High LDL: 130-159 mg/dLHigh LDL: 160-189 mg/dLVery High LDL: greater than or equal to 190 mg/dL HDL Cholesterol 49 >40 mg/dL [facility] Comment:Desirable HDL: great er than 40 mg/dL Note: This HDL assay may give artificially low results in patients with liver disease. Blood Venous blood specimen / Unknown 08/14/2025 10:53 AM EDT 08/14/2025 2:25 PM EDT us Sandra Avila MD LAB BLOOD ORDERABLES Final Re sult [facility] [address] [place] [phone] * (ABNORMAL) Comprehensive Metabolic Panel (08/14/2025 10:53 AM EDT) Sodium 141 135 - 145 mmol/L [facility] Potassium 3.7 3.3 - 5.1 mmol/L [facility] Chloride 107 96 - 108 mmol/L [facility] Carbon Dioxide 27 22 - 29 mmol/L [facility] Anion Gap 11(L) 12 - 20 [facility] Urea Nitrogen (BUN) 13 9 - 16 mg/dL [facility] Creatinine, Serum 0.76 0.5 - 1.4 mg/dL [facility] Estimated Glomerular Filt Rate >60 [facility] Comment:Chronic Kidney Disea se: Estimated GFR < 60 mL/min/1.11w9Fctzmi Kidney Disease: Estimated GFR < 15 mL/min/1.73m2 Glucose 81 60 - 115 mg/dL [facility] Calcium 9.1 8.4 - 10.2 mg/dL [facility] Bilirubin, Total 0.6 0.0 - 1.0 mg/dL [facility] Aspartate Amino Transferase 22 5 - 31 U/L [facility] Alanine Aminotransferase 29 0 - 31 U/L [facility] Total Protein 7.6 6.5 - 8.0 g/dL [facility] Albumin Level 4.4 3.5 - 5.0 g/dL [facility] Alkaline Phosphatase 107 39 - 117 U/L [facility] Blood Venous blood specimen / Unknown 08/14/2025 10:53 AM EDT 08/14/2025 2:25 PM EDT us Sandra Avila MD LAB BLOOD ORDERABLES Final Re sult Performing Organization Address [facility] Co de Phone Number [facility] [address] [place] [phone] * Albumin, Random Urine W/Creatinine (08/14/2025 12:00 AM EDT) Creatinine, Urine 209.65 mg/dL [facility] Microalbumin Urine 9.0 mg/L [facility] Microalbum Creatinine Ratio Ur 4.2 <30 ug/mg cr [facility] Comment:Albumin/Creatinine R atio Reference Ranges: Normal: < 30 ug/mg creatinine Microalbuminuria: 30 - 300 ug/mg creatinineClinical Albuminuria: > 300 ug/mg creatinine 08/14/2025 08/14/2025 us Sandra Avila MD LAB URINE ORDERABLES Final Re sult Performing Organization Address [facility] Co de Phone Number [facility] [address] [place] [phone] * Automated Visual Field, Extended - OU - Both Eyes (08/07/2025 10:00 AM EDT) Narrative Zina Davies, OD - 08/10/2025 3:16 PM EDT VISUAL [...] HPV nRNA E6/E7 Not Detected Not Detected [facility] Comment:Methodology: Transcr iption-Mediated AmplificationThis assay detects E6/E7 viral messenger RNA (mRNA) from 14high-risk HPV types (16,18,31,33,35,39,45,51,52,56,58,59,66,68).Cervical sources are required for HPV testing.If a vaginal source from a patient who has had atotal hysterectomy with removal of cervix wassubmitted, please contact the testing laboratoryfor alternative testing options.For additional information, please refer tohttp://education.Plan B Acqusitions/faq/VWV792w6(This link if provided for information/educational purposes only.)THIS TEST WAS PERFORMED AT:[employer] [place] [phone] MACARIO MD SOURCE: SEE NOTE [facility] Comment:None given Report Status: TNP [facility] Clinical Information: SEE NOTE [facility] Comment:None given LMP: SEE NOTE [facility] Comment:NONE GIVEN Prev. PAP: SEE NOTE [facility] Comment:NONE GIVEN Prev. BX: SEE NOTE [facility] Comment:NONE GIVEN Statement Of Adequacy: SEE NOTE [facility] Comment:Satisfactory for jossie luation.Endocervical/transformation zone component absent. General Categorization: [facility] Interpretation/Result: SEE NOTE [facility] Comment:Cytology Results: Ne gative for intraepitheliallesion or malignancy. Cytology Comment SEE NOTE [facility] Comment:This Pap test has be en evaluated with computerassisted technology. Landscape Painter: SEE NOTE [facility] Comment:RXB, CT(ASCP)CT scre ening location: [place] [address] Review Landscape Painter: [facility] Pathologist [facility] PAP Infection SEE NOTE [facility] Comment:Shift in vaginal tyler ra suggestive of bacterialvaginosis. See Note SEE NOTE [facility] Comment:EXPLANATORY NOTE:The Pap is a screening test for cervical cancer. It isnot a diagnostic test and is subject to false negativeand false positive results. It is most reliable when asatisfactory sample, regularly obtained, is submittedwith relevant clinical findings and history, and whenthe Pap result is evaluated along with historic andcurrent clinical information. 09/17/2024 9:04 AM EDT 09/17/2024 4:10 PM EDT Narrative [facility] - 09/23/2024 10:46 AM EDT SEE SCANNED RESULTS IN EMR us Katie Jackson CNM LAB PATHOLOGY ORDERABLES Final Result [facility] [address] [place] [address] [phone] from Last 3 Months or Most Recently Relevant to Health Maintenance Insurance [facility] [employer] Care Teams Wire Stripping Machine Operator Relationship Specialty Start Date End Date Sandra Avila MD [address] [place] [id number] PCP - General Family Medicine 08/14/25 Judy Porras NP Nurse Practitioner Neurology 05/01/25
[2025-10-07 15:54] LABS: Anti Nuclear Antibody Screen NEGATIVE (NEGATIVE)
== END 2025-10-01 11:08 | disposition home or self-care (01) ==
LOC: HO.CHCLDS 11:07
PROVIDERS: Visit Provider Internal Medicine
DX: L57.8 Other skin changes due to chronic exposure to nonionizing radiation (principal)
CPT/HCPCS: 36415; 86038

== ENCOUNTER 2025-10-30 11:02 | Outpatient (REF) | payer MEDICAID, SELFPAY ==
--- OUTSIDE RECORDS SUMMARY | 2025-10-30 10:00 | XMS_ITS | Encounter Summary ---
Author Organization [employer] Address [address] [facility] [facility] 7 [place] [address] Care Team Providers Care Mechanical System Technician Name Role Phone Sandra Avila MD Primary Care Provider [phone] Encounter Details Date Type Department Care Team ([facility] st Contact Info) Description 10/30/2025 10:00 AM EST Office Visit [facility] [address], [place] [phone] Mirela Beard MD [address] [place] [address] Tobacco user (Primary Dx); Primary insomnia; Mild intermittent asthma without complication; Encounter for routine adult medical examination; Diarrhea, unspecified type Social History Tobacco Use Types Packs/Day Years [...] Answer Date Recorded Patient Health Questionnaire-9 Score 7 10/30/2025 Patient Health Questionnaire-9 Score 7 10/30/2025 Last PHQ-9: Questionnaire Data Not on file 1 12/31/2024 Housing Stability Answer Date Recorded What is [...] Answer Date Recorded Patient Health Questionnaire-2 Score 0 10/30/2025 Internet Access Answer Date Recorded Internet Access [...] Sign Reading Time Taken Comments Blood Pressure 110/70 10/30/2025 10:04 AM EST Pulse 88 10/30/2025 10:04 AM EST Temperature 37.2 C (99 F) 10/30/2025 10:04 AM EST Respiratory Rate 20 10/30/2025 10:04 AM EST Oxygen Saturation - - Inhaled Oxygen Concentration - - Weight 84.4 kg (186 lb) 10/30/2025 10:04 AM EST Height 158.8 cm (5' 2.5 ) 10/30/2025 10:04 AM ES T Body Mass Index 33.48 10/30/2025 10:04 AM EST documented in this encounter Functional Status * Over the past 2 weeks, how often have you been bothered by any of the following problems? Question Answer Date of Assessment Author Patient Health Questionnaire -2 Score 0 10/30/2025 10:37 AM Rainer Eric MA * Little interest or pleasure in doing things Answer Date of Assessment Author Not at all 10/30/2025 10:37 AM Ml Corado [place] * Feeling down, depressed, or hopeless Answer Date of Assessment Author Not at all 10/30/2025 10:37 AM Ml Corado [place] * Trouble falling or staying asleep, or sleeping too much Answer Date of Assessment Author Several days 10/30/2025 10:37 AM Ml Corado [place] * Feeling tired or having little energy Answer Date of Assessment Author Several days 10/30/2025 10:37 AM Ml Corado [place] * Poor appetite or overeating Answer Date of Assessment Author More than half the days 10/30/2025 10:37 AM Ml Eric [place] * Feeling bad about yourself - or that you are a failure or have let yourself or your family down Answer Date of Assessment Author Several days 10/30/2025 10:37 AM Ml Corado [place] * Trouble concentrating on things, such as reading the newspaper or watching television Answer Date of Assessment Author More than half the days 10/30/2025 10:37 AM Ml Eric [place] * Moving or speaking so slowly that other people could have noticed? Or the opposite - being so fidgety or restless that you have been moving around a lot more than usual. Answer Date of Assessment Author Not at all 10/30/2025 10:37 AM Ml Corado [place] * Thoughts that you would be better off or hurting yourself in some way Answer Date of Assessment Author Not at all 10/30/2025 10:37 AM Ml Corado [place] * Patient Health Questionnaire-9 Score Answer Date of Assessment Author 7 10/30/2025 10:37 AM Ml Corado [place] * How difficult have these problems made it for you to do your work, take care of things at home, or get along with other people? Answer Date of Assessment Author Not difficult at all 10/30/2025 10:37 AM Ml Russell MA documented as of this encounter Plan of Treatment Upcoming Encounters Date Type Department Care Team (Late st Contact Info) Description 11/11/2025 11:30 AM EST Office Visit [facility] [address] [place] [address] SamsonZina, OD [address] [place] [address] Scheduled Orders Name Type Priority Associated Diagnoses Orde r Schedule Measles, Mumps, and Rubella (MMR) Antibodies (IgG) Panel, Immune Status Lab Routine Encounter for routine adult medical examination Expected: 10/30/2025 (Approximate), Expires: 10/30/2026 Varicella Zoster Antibody, IgG Lab Routine Encounter for routine adult medical examination Expected: 10/30/2025 (Approximate), Expires: 10/30/2026 Magnesium Lab Routine Diarrhea, unspecified type Expected: 10/30/2025, Expires: 10/30/2026 Basic Metabolic Panel Lab Routine Diarrhea, unspecified type Expected: 10/30/2025 (Approximate), Expires: 10/30/2026 documented as of this encounter Visit Diagnoses Diagnosis Tobacco user- Primary Tobacco use disorder Primary insomnia Persistent disorder of initiating or maintaining sleep Mild intermittent asthma without complication Encounter for routine adult medical examination Diarrhea, unspecified type documented in this encounter Additional Health Concerns Assessment Noted Time PHQ-9 Depression Total Score: 7 10/30/20 25 10:37 AM EST documented as of this encounter Care Teams Mechanical System Technician Relationship Specialty Start Date End Date Sandra Avila MD [address] [place] [address] PCP - General Family Medicine 08/14/25 Judy Porras NP Nurse Practitioner Neurology 05/01/25 documented as of this encounter
--- OUTSIDE RECORDS SUMMARY | 2025-10-30 13:34 | XMS_ITS | Encounter Summary ---
Author Organization [employer] Address [address] [facility] [address] [place] [address] Care Team Providers Care Driller Multiple Spindle Name Role Phone Sandra Avila MD Primary Care Provider [phone] Encounter Details Date Type Department Care Team ([facility] st Contact Info) Description 10/08/2025 Results Follow-Up [facility] [address], [place] [phone] Urvashi Bolton MD [address] [place] [address] TOMA Screen,IFA, with Reflex to Titer and Pattern Social History Tobacco Use Types Packs/Day Years [...] the past 12 months, has t he [employer], gas, oil or water [employer] threatened to shut off services in your [...] Description 11/11/2025 11:30 AM EST Office Visit [facility] [address] [place] [address] Samson Zina, OD [address] [place] [address] documented as of this encounter Visit Diagnoses Not on filedocumented in this encounter Additional Health Concerns Assessment Noted Time PHQ-9 Depression Total Score: 8 01/09/20 12:17 PM EST documented as of this encounter Care Teams Driller Multiple Spindle Relationship Specialty Start Date End Date Sandra Avila MD [address] [place] [address] PCP - General Family Medicine 08/14/25 Judy Porras NP Nurse Practitioner Neurology 05/01/25 documented as of this encounter
--- OUTSIDE RECORDS SUMMARY | 2025-10-30 13:34 | XMS_ITS | Clinical Summary ---
Author Organization [employer] Address [address] [place] [address] Care Team Providers Care Companion Caregiver Name Role Phone Sandra Avila MD Primary Care Provider [phone] Allergies Active Allergy Reactions Criticality Noted Date [...] Once per day. 90 tablet 1 5 Active ketoconazole (NIZOral) 2 % shampooIndication s:Seborrheic [...] mouth at bedtime. 45 tablet 1 5 Active topiramate (Topamax) 25 MG tablet Take 1 tablet (25 mg) by mouth at bedtime. 90 tablet 1 5 Active albuterol (Ventolin HFA) 108 (90 Base) MCG/ACT inhalerIndication s:Acute URI INHALE 2 PUFFS EVERY 4 HOURS NEEDED FOR WHEEZING OR SHORTNESS OF BREATH 18 g 5 Active acetaZOLAMIDE (Diamox) 500 MG 12 hr capsule Take 500 mg by mouth. Active doxycycline (Vibra-Tabs) 100 MG tablet Take 1 tablet twice a day by oral route for 21 days. 5 Active fluticasone (Flonase) 50 MCG/ACT nasal spray SPRAY 2 SPRAYS INTO EACH NOSTRIL ONCE DAILY X 30 DAYS Active loperamide (Imodium A-D) 2 MG tablet Take 1-2 tablets (2-4 mg) by mouth if needed in the morning, at noon, in the evening, and at bedtime for diarrhea for up to 10 days. 30 tablet 5 11/09/20 25 Active Active Problems Problem Noted Date Diagnosed [...] of depressive symptoms. Pt was referred to [facility] in [place] for therapy services; pt reports currently feeling [...] per her medical chart. She moved from [place] to [place] two years ago. Current stressors increasing symptoms are family issues, her financial situation and her medical condition. Martha has no support in the area and feels isolated. Pt will start therapy services with external agency [facility] , she is scheduled for her first session next Sunday. Pt reports having excessive beer consumption when feeling under stress. She does not consider this is affecting her interpersonal relationships at this time. Educated patient with resources in the community and services provided by [facility] for alcohol dependence. clinician engaged [...] per her medical chart. She moved from [place] to [place] two years ago to stop complicated romantic [...] to engage in activities in her local protestant and have the sense of belonging. 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 Depression, unspecified 06/08/2023 [...] Date Resolved Date Periodontal disease 06/21/2023 08/14/20 Dental calculus 06/21/2023 08/14/2025 Localized gingival recession 06/21/2023 08/14/2025 Uncomplicated alcohol dependence (CMS/HCC) 06/08/2023 10/30/2025 Urine test negative 11/17/2022 11/17/2022 Screening for malignant neoplasm of cervix 11/02/2022 11/17/2022 Healthcare maintenance 11/02/202211/17 Encounters Date Type Department Care Team Description 10/30/2025 10:00 AM EST Office Visit [facility] [address] [place] [address] Mirela Beard MD Tobacco user (Primary Dx); Primary insomnia; Mild intermittent asthma without complication; Encounter for routine adult medical examination; Diarrhea, unspecified type 10/30/2025 Travel 10/20/2025 Patient Outreach [facility] [address] [place] [address] Sandra Avila MD Pre-visit Planning (SDOH was already completed) 10/12/2025 Telephone [facility] [address] [place] [address] Sandra Avila MD derm appt 10/08/2025 Results Follow-Up [facility] [address] [place] [address] Urvashi Bolton MD TEODORO Screen,IFA, with Reflex to Titer and Pattern 09/29/2025 10:45 AM EST Office Visit [facility] [address], [place] [phone] Urvashi Bolton MD Solar dermatitis (Primary Dx) 09/29/2025 Travel 09/28/2025 9:30 AM EST Office Visit [facility] [address] [place] [address] [phone] SamsonZina, OD Myopia of both eyes (Primary Dx) 09/28/2025 Travel 09/03/2025 Results Follow-Up [facility] [address], [place] [phone] Sandra Avila MD CBC auto differential, Comprehensive Metabolic Panel, TSH W/Reflex to FT4, Additional followed-up results: 7 08/19/2025 Telephone [facility] [address] [place] [address] Sandra Avila MD 08/14/2025 9:15 AM EDT Office Visit [facility] [address] [place] [address] Sandra Avila MD Patellofemoral disorder of left [...] immunization; Phlegm in throat 08/14/2025 Orders Only [facility] [address] [place] [address] Sandra Avila MD 08/14/2025 Travel 08/10/2025 Telephone [facility] [address] [place] [address] Sandra Avila MD chart prep 08/07/2025 10:00 AM EDT Office Visit [facility] [address] [place], [place] [phone] Samson, Zina, OD Chronic nonintractable headache, unspecified headache type (Primary Dx) 08/07/2025 Patient Outreach [facility] [address] [place], [place] [phone] Becca Desir Pre-visit Planning (SDOH screening completed on 12/18/24 ) 08/07/2025 Travel from Last 3 Months Immunizations Immunization Administration [...] your housing situation today? I have yary phoebe 12/18/[address] you li [...] 20 10/30/2025 10:04 AM EST Oxygen Saturation 98% 09/29/2025 10:45 AM EST Inhaled Oxygen Concentration - - Weight 84.4 kg (186 lb) 10/30/2025 10:04 AM EST Height 158.8 cm (5' 2.5 ) 10/30/2025 10:04 AM ES T Body Mass Index 33.48 10/30/2025 10:04 AM EST Plan of Treatment Upcoming Encounters Date Type Department Care Team (Late st Contact Info) Description 11/11/2025 11:30 AM EST Office Visit [facility] [address] [place] [address] Zina Davies, OD [address] [facility] [place] [address] Health Maintenance Due Date Last Done Comments Family Planning (PISQ) 2005 HPV Vaccines (1 - 3-dose series) 2005 Hepatitis B Vaccines (1 of 3 - 19+ 3-dose series) 2009 Dental Oral Exam 12/06/2023 06/04/2023, 12/14/2016 Dental X-Ray: Bitewings 06/05/2024 06/04/20, 12/14/2016 Dental Prophylaxis 09/21/2024 03/21/2024, 06/21/2023 COVID-19 Vaccine (2 - 2024-2 6 season) 2025 07/09/2025 Disability Screening 12/04/2025 12/04/2024 SDOH Screening 12/18/2025 12/18/2024 Alcohol/Substance Use Screening 04/17/2026 04/17/2025 Dental X-Ray: Full Mouth 06/05/2026 023, 12/14/2016 Tobacco Screening 09/29/2026 09/29/2025 Depression Screening 10/30/2026 10/30/2025, 10/30/2025 DTaP/Tdap/Td Vaccines (2 - T d or Tdap) 12/22/2026 12/22/2016 Cervical Cancer Screening 09/17/2029 HPV/Cotest 09/17/2029 09/17/2024 Pap Smear 09/17/2029 09/17/2024 Lipid Panel 08/14/2030 08/14/2025, 09/15/2024 Zoster Vaccines (1 of 2) 2040 RSV Patients and Patients Aged 60 years or older (1 - 1-dose 75+ series) 2065 Influenza Vaccine Completed 07/09/2025, 11/17/2022, 09/22/2016 HIV [...] Procedure Name Priority Date/Time Associated Diagnosis Comments TEODORO SCREEN, IFA, W/REFL TITER AND PATTERN Routine 10/01/2025 11:09 AM EST Solar dermatitis T-SPOT(R).TB Routine 08/14/2025 10:53 AM EDT Tuberculosis [...] Recently Relevant to Health Maintenance Results * TEODORO Screen,IFA, with Reflex to Titer and Pattern (10/01/2025 11:09 AM EST) Anti Nuclear Antibody Screen NEGATIVE NEGATIVE [facility] Comment:TEODORO IFA is a first l ine screen for detecting thepresence of up to approximately 150 autoantibodies invarious autoimmune diseases. A negative TEODORO IFA resultsuggests an TEODORO-associated autoimmune disease is notpresent at this time, but is not definitive. If thereis high clinical suspicion for Sjogren's syndrome,testing for anti-SS-A/Ro antibody should be considered.Anti-Kimberly-1 antibody should be considered for clinicallysuspected inflammatory myopathies.AC-0: NegativeInternational Consensus on TEODORO Patterns(https://doi.org/10.1515/mgmu-2781-0706)For additional information, please refer tohttp://education.[employer]olarEdge.[employer]/faq/IEN686(This link is being provided for informational/educational purposes only.)THIS TEST WAS PERFORMED AT:[address] [place] [phone] MACARIO MD TEODORO Titer TNP [facility] TEODORO Pattern TNP [facility] TEODORO Titer 2 TNP [facility] TEODORO Pattern 2 [facility] TITER 3 [facility] TEODORO PATTERN 3 [facility] Blood Venous blood specimen / Unknown 10/01/2025 11:09 AM EST 10/01/2025 2:02 PM EST us Urvashi Bolton MD LAB BLOOD ORDERABLES Final Result [facility] [address] [place] [address] [phone] * T-SPOT??.TB (08/14/2025 10:53 AM EDT) [facility] Signature T Spot TB Negative Negative [facility] Comment:A negative test resu lt [...] as aquantitative test. TS PANEL A 0 [facility] TS PANEL B 0 [facility] Negative Control Passed [facility] Positive Control Passed [facility] Comment:For additional infor marquita, please refer tohttp://education.[employer]/faq/PWV549(This link is being provided for informational/educational purposes only.)REPORT COMMENT:REC'D AT [facility] TEST WAS PERFORMED AT:[id number] [place] [id number] WINN MD,PHD 08/14/2025 10:5 3 AM EDT 08/14/2025 2:25 PM EDT us Sandra Avila MD LAB BLOOD ORDERABLES Final Re sult Performing Organization Address [facility]/ZIP Co de Phone Number [facility] [address] [place] [address] [phone] * TSH W/Reflex to FT4 (08/14/2025 10:53 AM EDT) TSH reflex Free T4 0.92 0.32 - 4.0 uIU/mL [facility] Blood Venous blood specimen / Unknown 08/14/2025 10:53 AM EDT 08/14/2025 2:25 PM EDT Sandra Avila MD LAB BLOOD ORDERABLES Final Re sult Performing Organization Address [facility] Co de Phone Number [facility] [address] [place] [phone] * (ABNORMAL) CBC auto differential (08/14/2025 10:53 AM EDT) White Blood Count 15.1(H) 4.8 - 10.8 X10*3/uL [facility] Red Blood Count 4.45 4.20 - 5.50 X10*6/uL [facility] Hemoglobin 13.9 12.0 - 16.0 g/dl [facility] Hematocrit 40.4 37.0 - 47.0 % [facility] Mean Corpuscular Volume 90.8 80.0 - 98.0 fL [facility] Mean Corpuscular Hemoglobin 31.2 27.0 - 33.0 pg [facility] Mean Corpuscular HGB Conc 34.4 31.0 - 35.0 g/dl [facility] Red Cell Distribution Width 13.0 11.0 - 16.0 % [facility] Platelet Count 397 160 - 400 X10*3/uL [facility] Mean Platelet Volume 11.7 9.4 - 12.3 fL [facility] Neutrophils Percent Auto 59.2 45 - 73 % [facility] Imm Gran Pct Auto 0.4 0.0 - 0.4 % [facility] Lymphocytes Percent Auto 31.8 20 - 40 % [facility] Monocytes Percent Auto 6.7 2 - 11 % [facility] Eosinophils Percent Auto 1.3 0 - 4 % [facility] Basophils Percent Auto 0.6 0 - 2 % [facility] NRBC Pct Auto 0.0 0.0 - 0.2 /100WBC [facility] Neutrophils Absolute Auto 9.0(H) 2.0 - 8.3 x10*3/uL [facility] Imm Gran Abs Auto 0.06(H) 0.00 - 0.03 X10*3/uL [facility] Lymphocytes Absolute Auto 4.8 1.2 - 4.9 X10*3/uL [facility] Monocytes Absolute Auto 1.0 0.1 - 1.2 X10*3/uL [facility] Eosinophils Absolute Auto 0.2 0.0 - 0.4 X10*3/uL [facility] Basophils Absolute Auto 0.1 0.0 - 0.2 X10*3/uL [facility] NRBC Abs Auto 0.000 0.0 - 0.012 X10*3/uL [facility] Blood Venous blood specimen / Unknown 08/14/2025 10:53 AM EDT 08/14/2025 2:25 PM EDT us Sandra Avila MD LAB BLOOD ORDERABLES Final Re sult [facility] [address] [place] [address] [phone] * Hepatitis C Antibody with Reflex to HCV, RNA, Quantitative, Real-Time PCR (08/14/2025 10:53 AM EDT) Hepatitis C Antibody Nonreactive Nonreactive [facility] Comment:Antibodies to HCV no t detected; does not exclude early acuteHCV infection. Blood Venous blood specimen / Unknown 08/14/2025 10:53 AM EDT 08/14/2025 2:25 PM EDT Sandra Avila MD LAB BLOOD ORDERABLES Final Re sult Performing Organization Address [facility] Co de Phone Number [facility] [address] [place] [phone] * Hepatitis B surface antigen, EIA (08/14/2025 10:53 AM EDT) Hepatitis B Surface Ag Negative Negative [facility] Blood Venous blood specimen / Unknown 08/14/2025 10:53 AM EDT 08/14/2025 2:25 PM EDT Sandra Avila MD LAB BLOOD ORDERABLES Final Re sult Performing Organization Address [facility] Phone Number [facility] [address] [place] [phone] * Hepatitis B Core Antibody, Total (08/14/2025 10:53 AM EDT) Hepatitis B Core Antibody Nonreactive Nonreactive [facility] Blood Venous blood specimen / Unknown 08/14/2025 10:53 AM EDT 08/14/2025 2:25 PM EDT Sandra Avila MD LAB BLOOD ORDERABLES Final Re sult Performing Organization Address [facility] de Phone Number [facility] [address] [place] [phone] * HIV-1/2 Antigen and Antibodies, Fourth Generation, with Reflexes (08/14/2025 10:53 AM EDT) HIV AB/AG Nonreactive Nonreactive [facility] Comment:HIV-1 p24 Ag and/or HIV-1/HIV-2 Ab not detected.A test result that is nonreactive does not exclude thepossibility of exposure to or infection with HIV-1 and/orHIV-2. Nonreactive results in this assay for individualswith prior exposure to HIV-1 and/or HIV-2 may be due toantigen and antibody levels that are below the limit ofdetection of this assay.The Memoropnity HIV Ag/Ab Combo assay result andsupplemental assay results should be interpreted inconjunction with the patient's clinical presentation,history and other laboratory results. If the results areinconsistent with clinical evidence, additional testing issuggested to confirm the result. Blood Venous blood specimen / Unknown 08/14/2025 10:53 AM EDT 08/14/2025 2:25 PM EDT Sandra Avila MD LAB BLOOD ORDERABLES Final Re sult Performing Organization Address [facility] Co de Phone Number [facility] [address] [place] [phone] * Hepatitis B Surface Antibody, Qualitative (08/14/2025 10:53 AM EDT) ~Hepatitis B Surface Antibody REACTIVE Nonreactive [facility] Comment:REACTIVE: > 11.99 mI U/mL Blood Venous blood specimen / Unknown 08/14/2025 10:53 AM EDT 08/14/2025 2:25 PM EDT Sandra Avila MD LAB BLOOD ORDERABLES Final Re sult Performing Organization Address [facility] Co de Phone Number [facility] [address] [place] [phone] * (ABNORMAL) Lipid Panel, Standard (08/14/2025 10:53 AM EDT) Triglycerides 91 <150 mg/dL [facility] Comment:Desirable Triglyceri de: less than 150 mg/dLBorderline High Triglyceride 150-199 mg/dLHigh Triglyceride: 200-499 mg/dLVery High Triglyceride: greater than or equal to 5OO mg/dL Cholesterol 196 <200 mg/dL [facility] Comment:Desirable Cholestero l: less than 200 mg/dLBorderline High Cholesterol: 200-239 mg/dLHigh Cholesterol: greater than 239 mg/dL LDL Cholesterol Calculated 129(H) <100 mg/dL [facility] Comment:Desirable LDL: less than 100 mg/dLNear Optimal/Above Optimal LDL: 110- 129 mg/dLBorderline High LDL: 130-159 mg/dLHigh LDL: 160-189 mg/dLVery High LDL: greater than or equal to 190 mg/dL HDL Cholesterol 49 >40 mg/dL [facility] Comment:Desirable HDL: great er than 40 mg/dL Note: This HDL assay may give artificially low results in patients with liver disease. Blood Venous blood specimen / Unknown 08/14/2025 10:53 AM EDT 08/14/2025 2:25 PM EDT us Sandra Avila MD LAB BLOOD ORDERABLES Final Re sult [facility] [address] [place] [phone] * (ABNORMAL) Comprehensive Metabolic Panel (08/14/2025 10:53 AM EDT) Sodium 141 135 - 145 mmol/L [facility] Potassium 3.7 3.3 - 5.1 mmol/L [facility] Chloride 107 96 - 108 mmol/L [facility] Carbon Dioxide 27 22 - 29 mmol/L [facility] Anion Gap 11(L) 12 - 20 [facility] Urea Nitrogen (BUN) 13 9 - 16 mg/dL [facility] Creatinine, Serum 0.76 0.5 - 1.4 mg/dL [facility] Estimated Glomerular Filt Rate >60 [facility] Comment:Chronic Kidney Disea se: Estimated GFR < 60 mL/min/1.43e7Lmfman Kidney Disease: Estimated GFR < 15 mL/min/1.73m2 Glucose 81 60 - 115 mg/dL [facility] Calcium 9.1 8.4 - 10.2 mg/dL [facility] Bilirubin, Total 0.6 0.0 - 1.0 mg/dL [facility] Aspartate Amino Transferase 22 5 - 31 U/L [facility] Alanine Aminotransferase 29 0 - 31 U/L [facility] Total Protein 7.6 6.5 - 8.0 g/dL [facility] Albumin Level 4.4 3.5 - 5.0 g/dL [facility] Alkaline Phosphatase 107 39 - 117 U/L [facility] Blood Venous blood specimen / Unknown 08/14/2025 10:53 AM EDT 08/14/2025 2:25 PM EDT us Sandra Avila MD LAB BLOOD ORDERABLES Final Re sult Performing Organization Address [facility] Co de Phone Number [facility] [address] [place] [phone] * Albumin, Random Urine W/Creatinine (08/14/2025 12:00 AM EDT) Creatinine, Urine 209.65 mg/dL [facility] Microalbumin Urine 9.0 mg/L [facility] Microalbum Creatinine Ratio Ur 4.2 <30 ug/mg cr [facility] Comment:Albumin/Creatinine R atio Reference Ranges: Normal: < 30 ug/mg creatinine Microalbuminuria: 30 - 300 ug/mg creatinineClinical Albuminuria: > 300 ug/mg creatinine 08/14/2025 08/14/2025 us Sandra Avila MD LAB URINE ORDERABLES Final Re sult Performing Organization Address [facility] Co de Phone Number [facility] [address] [place] [phone] * Automated Visual Field, Extended - [...] OPHTH VISUAL FIELD Final Resu lt * [facility] Pap and HPV mRNA E6/E7 (09/17/2024 9:04 AM EDT) HPV nRNA E6/E7 Not Detected Not Detected [facility] Comment:Methodology: Transcr iption-Mediated AmplificationThis assay detects E6/E7 viral messenger RNA (mRNA) from 14high-risk HPV types (16,18,31,33,35,39,45,51,52,56,58,59,66,68).Cervical sources are required for HPV testing.If a vaginal source from a patient who has had atotal hysterectomy with removal of cervix wassubmitted, please contact the testing laboratoryfor alternative testing options.For additional information, please refer tohttp://education.Hamstersoft/faq/VOE767b7(This link if provided for information/educational purposes only.)THIS TEST WAS PERFORMED AT:[address] [place] [id number] MACARIO MD SOURCE: SEE NOTE [facility] Comment:None given Report Status: TNP [facility] Clinical Information: SEE NOTE [facility] Comment:None given LMP: SEE NOTE [facility] Comment:NONE GIVEN Prev. PAP: SEE NOTE [facility] Comment:NONE GIVEN Prev. BX: SEE NOTE [facility] Comment:NONE GIVEN Statement Of Adequacy: SEE NOTE [facility] Comment:Satisfactory for jossie luation.Endocervical/transformation zone component absent. General Categorization: [facility] Interpretation/Result: SEE NOTE [facility] Comment:Cytology Results: Ne gative for intraepitheliallesion or malignancy. Cytology Comment SEE NOTE [facility] Comment:This Pap test has be en evaluated with computerassisted technology. Leasing Professional: SEE NOTE [facility] Comment:RXB, CT(ASCP)CT scre ening location: [place] [address] Review Leasing Professional: [facility] Pathologist [facility] PAP Infection SEE NOTE [facility] Comment:Shift in vaginal tyler ra suggestive of bacterialvaginosis. See Note SEE NOTE [facility] Comment:EXPLANATORY NOTE:The Pap is a screening test for cervical cancer. It isnot a diagnostic test and is subject to false negativeand false positive results. It is most reliable when asatisfactory sample, regularly obtained, is submittedwith relevant clinical findings and history, and whenthe Pap result is evaluated along with historic andcurrent clinical information. 09/17/2024 9:04 AM EDT 09/17/2024 4:10 PM EDT Narrative [facility] - 09/23/2024 10:46 AM EDT SEE SCANNED RESULTS IN EMR us Katie ESPARZA LAB PATHOLOGY ORDERABLES Final Result [facility] [address] [place] [phone] from Last 3 Months or Most Recently Relevant to Health Maintenance Insurance [facility] [employer] [employer] Care Teams Companion Caregiver Relationship Specialty Start Date End Date Sandra Avila MD [address] [place] [phone] PCP - General Family Medicine 08/14/25 Judy Porras NP Nurse Practitioner Neurology 05/01/25
--- OUTSIDE RECORDS SUMMARY | 2025-10-30 13:34 | XMS_ITS | Encounter Summary ---
Author Organization [employer] Address [address] [place] [address] Care Team Providers Care Painter Assistant Name Role Phone Barbie Hart Primary Care Provider [phone] Sundeep Arambula RN Unavailable [phone] Sandra Avila MD Primary Care Provider [phone] Encounter Details Date Type Department Care Team (Late st Contact Info) Description 07/10/2023 Abstract [facility] [address], [place] [phone] Alma Ying [address], [place] [phone] Social History Tobacco Use Types Packs/Day Years [...] place to sleep or slept in a long term (including now)? No 11/17/2022 Alcohol Answer Date [...] Description 11/11/2025 11:30 AM EST Office Visit [facility] [address] [place] [address] Samson, Megan, OD [address] [place] [address] documented as of this encounter Visit Diagnoses Not on filedocumented in this encounter Additional Health Concerns Assessment Noted Time PHQ-9 Depression Total Score: 14 022 2:06 PM EST documented as of this encounter Care Teams Painter Assistant Relationship Specialty Start Date End Date Barbie Hart ANP [address] [place] [address] PCP - General Family Medicine 01/25/23 08/13/25 Sandra Avila MD [address] [place] [address] PCP - General Family Medicine 08/14/25 Sundeep Arambula, SHALOM [address] [place] [address] Electronic Parts DesignerRheostat Assembler 11/27/24 02/24/25 Judy Porras, CHAINER Nurse Practitioner Neurology 05/01/25 documented as of this encounter
--- OUTSIDE RECORDS SUMMARY | 2025-10-30 13:35 | XMS_ITS | Encounter Summary ---
Author Organization [employer] Address [address] [place] [address] Care Team Providers Care Agile Project Manager Name Role Phone Sandra Avila MD Primary Care Provider [phone] Encounter Details Date Type Department Care Team (Latest Contact Info) Description 10/30/2025 Travel Social History Tobacco Use Types Packs/Day [...] PM EDT documented as of this encounter Functional Status * Over the [...] Description 11/11/2025 11:30 AM EST Office Visit [facility] [address] [place] [address] Zina Davies, OD [address] [place] [address] documented as of this encounter Visit Diagnoses Not on filedocumented in this encounter Additional Health Concerns Assessment Noted Time PHQ-9 Depression Total Score: 7 10/30/20 10:37 AM EST documented as of this encounter Care Teams Agile Project Manager Relationship Specialty Start Date End Date Sandra Avila MD [address] [place] [address] PCP - General Family Medicine 08/14/25 Judy Porras, UZAIR Nurse Practitioner Neurology 05/01/25 documented as of this encounter
--- OUTSIDE RECORDS SUMMARY | 2025-10-30 13:35 | XMS_ITS | Clinical Summary ---
Author Organization [facility] [address] [address] Phone Care Team Providers Care Project Control Manager Name Role Phone Cande Viera APRN Primary [...] age to complete this topic Insurance #2 [place], [place] [id number] [place] [place] [address] [place] [place] [address] [place] Care Teams Project Control Manager Relationship Specialty Start Date End Date Cande Viera, [employer]CE[employer] AGENT [address] [place] [address] [place] [address] PCP - General 06/25/19
--- OUTSIDE RECORDS SUMMARY | 2025-10-30 13:35 | XMS_ITS | Encounter Summary ---
Author Organization [employer] Address [address] [facility] [address] [place] [address] Care Team Providers Care Consulting Sme Name Role Phone Sandra Avila MD Primary Care Provider [phone] Encounter Details Date Type Department Care Team (Latest Contact Info) Description 09/03/2025 Results Follow-Up [facility] [address] [place], [place] [phone] Sandra Avila MD [address] [place] [address] CBC auto differential, Comprehensive Metabolic Panel, TSH [...] Description 11/11/2025 11:30 AM EST Office Visit [facility] [address] [place] [address] Samson, Zina, OD [address] [place] [address] documented as of this encounter Visit Diagnoses Not on filedocumented in this encounter Additional Health Concerns Assessment Noted Time PHQ-9 Depression Total Score: 8 01/09/20 25 12:17 PM EST documented as of this encounter Care Teams Consulting Sme Relationship Specialty Start Date End Date Sandra Avila MD [address] [place] [address] PCP - General Family Medicine 08/14/25 Judy Porras, HEALTH SAFETY MANAGER Nurse Practitioner Neurology 05/01/25 documented as of this encounter
[2025-10-30 17:30] LABS: Anion Gap 11 (12-20); Blood Urea Nitrogen 14 mg/dL (9-16); Calcium 9.5 mg/dL (8.4-10.2); Carbon Dioxide 22 mmol/L (22-29); Chloride 113 mmol/L (96-108); Estimated Glomerular Filt Rate > 60; Magnesium 2.2 mg/dL (1.6-2.6); Potassium 3.7 mmol/L (3.3-5.1); Sodium 142 mmol/L (135-145)
[2025-10-31 06:49] LABS: Rubeola IgG (Measles) >300.00 AU/mL
== END 2025-10-30 11:03 | disposition home or self-care (01) ==
LOC: HO.CHCLDS 11:02
PROVIDERS: Visit Provider Pediatrics
DX: Z01.84 Encounter for antibody response examination (principal); R19.7 Diarrhea, unspecified
CPT/HCPCS: 36415; 80048; 83735; 86735; 86762; 86765; 86787